=== PATIENT | female | born 1965 ===

== ENCOUNTER 2025-06-06 07:23 | Outpatient (AMB) | payer BC, SELFPAY ==
[2025-06-06 07:26] VITALS: BMI 38.3
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
--- OUTSIDE RECORDS SUMMARY | 2025-06-06 07:26 | XMS_ITS | Data Portability ---
Author Organization [place] - [place] V[facility]phyicut, [id number] [facility] Address [address] [place] [address] Care Team Providers Care Pediatric Clinical Nurse Specialist Name Role Phone SHUKRI WEATHERS Mental Health Program Manager JUSTIN ARELLANO Primary Care Provider Assessment No assessment recorded. Plan of Treatment Reminders Order Date Submit Date Provider Last Modified By Organization Details Last Modified Time Details Appointments Wellness Visit 2024 02:00P M Justin Arellano MD Not available Not available Not available Lab urinalysi s, dipstick [address]_ctcma_im_[address] [place] [address], [address], [place], [address], 07/06/2023 15:40:59 Referral gastroent erologist referral 2024 025 [facility], [facility], [address] [place] [address], [address], 07/27/2024 14:24:36 gastroent erologist referral 2023 024 [facility], [facility], [address] [place] [address], [address], 07/07/2023 09:00:50 Procedures None recorded. Surgeries None recorded. Imaging MAMMO, screening , tomosynth esis, bilateral , w/ CAD 2024 025 [facility] ([facility]), [address], [place], [address], 09/04/2024 20:09:02 MAMMO, screening , tomosynth esis, bilateral , w/ CAD 2022 024 [facility] ([facility]), [address], [place], [address], 07/22/2023 14:09:33 Medication Orders escitalop todd 10 mg tablet 2023 024 [facility] #[id number], [address] [place], [address], 10/29/2023 08:52:50 Ozempic 2 mg/dose (8 mg/3 mL) subcutane ous pen injector 2023 024 [facility] #[id number], [address] [place], [address], 10/29/2023 08:53:54 metformin 500 mg tablet 2023 024 [id number], [address] [place], [address], 07/06/2023 15:41:00 Ozempic 2 mg/dose (8 mg/3 mL) subcutane ous pen injector 2022 023 [facility] #[id number], [address] [place], [address], 10/29/2023 08:53:54 metformin 500 mg tablet 2022 023 [id number], [address] [place], [address], 04/20/2023 09:47:00 Zithromax Z-Ryan 250 mg tablet 2022 023 [facility] #[id number], [address] [place], [address], 10/29/2023 08:52:33 albuterol sulfate HFA 90 mcg/actua tion aerosol inhaler [address] [id number], [address] [place], [address], 04/20/2023 09:21:31 prednison e 10 mg tablet [address] [id number], [address] [place], [address], 04/20/2023 09:21:46 codeine 10 mg-guaife nesin 100 mg/5 mL oral liquid [address] [id number], [address] [place], [address], 04/20/2023 09:21:58 Patient TargetsNo targets recorded. Patient Instructions Encounter Date Encounter Id Patient Instructions Last Modified By Organization Details Last Modified Time 10/29/2023 [id number] * Try to keep th e swollen area higher than the level of your heart * Take breaks from standing or sitting in one position * Wear support stockings. Put them on in the morning, before swelling gets worse * Limit the amount of salt (sodium) in your diet [id number] Not available 10/31/2023 12:21:17 Reason for Referral User Interface Developer Referral for Screening for malignant neoplasm of colon Referring Physician: Justin Arellano, Internal Medicine, Encounter Date: 07/06/2023 User Interface Developer Referral for Screening for malignant neoplasm of colon Referring Physician: Justin Arellano, Internal Medicine, Encounter Date: 07/26/2024 Results Created Date Observation Date Name Description Value Unit Range Abnormal Flag Note LastModifiedBy Organization Detail LastModifiedTime 04/30/20 23 05/01/2023 LIPID PANEL WITH REFLE X TO DIREC T LDL cholesterol, total 209 mg/dL <200 high Not Available [facility] [address], [place], [address], 05/01/2023 05:03:39 04/30/20 23 05/01/2023 LIPID PANEL WITH REFLE X TO DIREC T LDL HDL cholesterol 61 mg/dL > or = 50 normal Not Available [facility] [place] [facility] [address], [place], [address], 05/01/2023 05:03:39 04/30/20 23 05/01/2023 LIPID PANEL WITH REFLE X TO DIREC T LDL triglyceride s 127 mg/dL <150 normal Not Available [facility] [place] [facility] [address], [place], [address], 05/01/2023 05:03:39 04/30/20 23 05/01/2023 LIPID PANEL WITH REFLE X TO DIREC T LDL LDL-choleste rol 124 mg/dL _(ruben c) high Refer ence range : <100 Nikhil able range <100 mg/dL for prima ry preve ntion ; <70 mg/dL for patie nts with CHD or diabe tic patie nts with > or = 2 CHD risk facto rs. LDL-C is now calcu lated using the Keyana rogers-Hop kins calcu barrera n, which is a valid ated novel gonzalez garzon christopher r accur acy than the Fried noemy equat ion in the estim ation of LDL-C . Keyana WATKINS et al. PATRICK. 2013; 310(1 9): 2061- 2068 (http ://ed ucati on.Qu Gertrudis hook BO.LTs. com/f aq/FA Q164) Not Available [facility] [place] [facility] [address], [place], [address], 05/01/2023 05:03:39 04/30/20 23 05/01/2023 LIPID PANEL WITH REFLE X TO DIREC T LDL chol/HDLC ratio 3.4 (calc ) <5.0 normal Not Available [facility] [place] [facility] [address], [place], [address], 05/01/2023 05:03:39 04/30/20 23 05/01/2023 LIPID PANEL WITH REFLE X TO DIREC T LDL non HDL cholesterol 148 mg/dL _(ruben c) <130 high For patie nts with diabe anahi plus 1 major ASCVD risk facto r, treat ing to a non-H DL-C goal of <100 mg/dL (LDL- C of <70 mg/dL ) is consi dered a thera peuti c optio n. Not Available [facility] [place] [facility] [address], [place], [address], 05/01/2023 05:03:39 04/30/2005/01/2023 COMPR EHENS SWATHI METAB OLIC PANEL glucose 90 mg/dL 65-99 normal Fasti ng refer ence inter payton Not Available [facility] [place] [facility] [address], [place], [address], 05/01/2023 05:03:40 04/30/20 23 05/01/2023 COMPR EHENS SWATHI METAB OLIC PANEL urea nitrogen (BUN) 13 mg/dL 7-25 normal Not Available [facility] [place] [facility] [address], [place], [address], 05/01/2023 05:03:40 04/30/20 23 05/01/2023 COMPR EHENS SWATHI METAB OLIC PANEL creatinine 0.66 mg/dL 0.50-1 .03 normal Not Available [facility] [place] [facility] [address], [place], [address], 05/01/2023 05:03:40 04/30/20 23 05/01/2023 COMPR EHENS SWATHI METAB OLIC PANEL eGFR 104 mL/mi n/1.7 3m2 > or = 60 normal Not Available [facility] [address], [place], [address], 05/01/2023 05:03:40 04/30/20 23 05/01/2023 COMPR EHENS SWATHI METAB OLIC PANEL BUN/creatini ne ratio SEE NOTE: (calc ) 6-22 Not Repor carolann: BUN and Creat inine are withi n refer ence range . Not Available [facility] [address], [place], [address], 05/01/2023 05:03:40 04/30/20 23 05/01/2023 COMPR EHENS SWATHI METAB OLIC PANEL sodium 139 mmol/ L 135-14 6 normal Not Available [facility] [address], [place], [address], 05/01/2023 05:03:40 04/30/20 23 05/01/2023 COMPR EHENS SWATHI METAB OLIC PANEL potassium 4.2 mmol/ L 3.5-5. 3 normal Not Available [facility] [address], [place], [address], 05/01/2023 05:03:40 04/30/20 23 05/01/2023 COMPR EHENS SWATHI METAB OLIC PANEL chloride 106 mmol/ L 98-110 normal Not Available [facility] [address], [place], [address], 05/01/2023 05:03:40 04/30/20 23 05/01/2023 COMPR EHENS SWATHI METAB OLIC PANEL carbon dioxide 25 mmol/ L 20-32 normal Not Available [facility] [address], [place], [address], 05/01/2023 05:03:40 04/30/20 23 05/01/2023 COMPR EHENS SWATHI METAB OLIC PANEL calcium 9.3 mg/dL 8.6-10 .4 normal Not Available [facility] [address], [place], [address], 05/01/2023 05:03:40 04/30/20 23 05/01/2023 COMPR EHENS SWATHI METAB OLIC PANEL protein, total 6.9 g/dL 6.1-8. 1 normal Not Available [facility] [address], [place], [address], 05/01/2023 05:03:40 04/30/20 23 05/01/2023 COMPR EHENS SWATHI METAB OLIC PANEL albumin 4.5 g/dL 3.6-5. 1 normal Not Available [facility] [address], [place], [address], 05/01/2023 05:03:40 04/30/20 23 05/01/2023 COMPR EHENS SWATHI METAB OLIC PANEL globulin 2.4 g/dL_ (calc ) 1.9-3. 7 normal Not Available [facility] [address], [place], [address], 05/01/2023 05:03:40 04/30/20 23 05/01/2023 COMPR EHENS SWATHI METAB OLIC PANEL albumin/glob ulin ratio 1.9 (calc ) 1.0-2. 5 normal Not Available [facility] [address], [place], [address], 05/01/2023 05:03:40 04/30/20 23 05/01/2023 COMPR EHENS SWATHI METAB OLIC PANEL bilirubin, total 0.7 mg/dL 0.2-1. 2 normal Not Available [facility] [address], [place], [address], 05/01/2023 05:03:40 04/30/20 23 05/01/2023 COMPR EHENS SWATHI METAB OLIC PANEL alkaline phosphatase 73 U/L 37-153 normal Not Available [facility] [address], [place], [address], 05/01/2023 05:03:40 04/30/20 23 05/01/2023 COMPR EHENS SWATHI METAB OLIC PANEL AST 18 U/L 10-35 normal Not Available [facility] [place] [facility] [address], [place], [address], 05/01/2023 05:03:40 04/30/20 23 05/01/2023 COMPR EHENS SWATHI METAB OLIC PANEL ALT 27 U/L 6-29 normal Not Available [facility] [place] [facility] [address], [place], [address], 05/01/2023 05:03:40 04/30/20 23 05/01/2023 CBC (INCL UDES DIFF/ PLT) white blood cell count 8.0 thous and/u L 3.8-10 .[address] [facility] [place] [facility] [address], [place], [address], 05/01/2023 05:03:41 04/30/20 23 05/01/2023 CBC (INCL UDES DIFF/ PLT) red blood cell count 4.94 irma on/uL 3.80-5 .10 normal Not Available [facility] [address], [place], [address], 05/01/2023 05:03:41 04/30/20 23 05/01/2023 CBC (INCL UDES DIFF/ PLT) hemoglobin 14.0 g/dL 11.7-1 5.5 normal Not Available [facility] [address], [place], [address], 05/01/2023 05:03:41 04/30/20 23 05/01/2023 CBC (INCL UDES DIFF/ PLT) hematocrit 41.7 % 35.0-4 5.0 normal Not Available [facility] [address], [place], [address], 05/01/2023 05:03:41 04/30/20 23 05/01/2023 CBC (INCL UDES DIFF/ PLT) MCV 84.4 fL 80.0-1 00.0 normal Not Available [facility] [place] [facility] [address], [place], [address], 05/01/2023 05:03:41 04/30/20 23 05/01/2023 CBC (INCL UDES DIFF/ PLT) MCH 28.3 pg 27.0-3 3.0 normal Not Available [facility] [address], [place], [address], 05/01/2023 05:03:41 04/30/20 23 05/01/2023 CBC (INCL UDES DIFF/ PLT) MCHC 33.6 g/dL 32.0-3 6.0 normal Not Available [facility] [place] [facility] [address], [place], [address], 05/01/2023 05:03:41 04/30/20 23 05/01/2023 CBC (INCL UDES DIFF/ PLT) RDW 13.1 % 11.0-1 5.0 normal Not Available [facility] [address], [place], [address], 05/01/2023 05:03:41 04/30/20 23 05/01/2023 CBC (INCL UDES DIFF/ PLT) platelet count 347 thous and/u L 140-40 0 normal Not Available [facility] [place] [facility] [address], [place], [address], 05/01/2023 05:03:41 04/30/20 23 05/01/2023 CBC (INCL UDES DIFF/ PLT) MPV 10.6 fL 7.5-12 .5 normal Not Available [facility] [place] [facility] [address], [place], [address], 05/01/2023 05:03:41 04/30/20 23 05/01/2023 CBC (INCL UDES DIFF/ PLT) absolute neutrophils 4960 cells /uL 1500-7 800 normal Not Available [facility] [place] [facility] [address], [place], [address], 05/01/2023 05:03:41 04/30/20 23 05/01/2023 CBC (INCL UDES DIFF/ PLT) absolute lymphocytes 2120 cells /uL 850-39 00 normal Not Available [facility] [place] [facility] [address], [place], [address], 05/01/2023 05:03:41 04/30/20 23 05/01/2023 CBC (INCL UDES DIFF/ PLT) absolute monocytes 600 cells /uL 200-95 0 normal Not Available [facility] [place] [facility] [address], [place], [address], 05/01/2023 05:03:41 04/30/20 23 05/01/2023 CBC (INCL UDES DIFF/ PLT) absolute eosinophils 232 cells /uL 15-500 normal Not Available [facility] [place] [facility] [address], [place], [address], 05/01/2023 05:03:41 04/30/20 23 05/01/2023 CBC (INCL UDES DIFF/ PLT) absolute basophils 88 cells /uL 0-200 normal Not Available [facility] [place] [facility] [address], [place], [address], 05/01/2023 05:03:41 04/30/20 23 05/01/2023 CBC (INCL UDES DIFF/ PLT) neutrophils 62 % normal Not Available [facility] [place] [facility] [address], [place], [address], 05/01/2023 05:03:41 04/30/2005/01/2023 CBC (INCL UDES DIFF/ PLT) lymphocytes 26.5 % normal Not Available [facility] [place] [facility] [address], [address], 05/01/2023 05:03:41 04/30/20 23 05/01/2023 CBC (INCL UDES DIFF/ PLT) monocytes 7.5 % normal Not Available [facility] [place] [facility] [address], [address], 05/01/2023 05:03:41 04/30/2005/01/2023 CBC (INCL UDES DIFF/ PLT) eosinophils 2.9 % normal Not Available [facility] [place] [facility] [address], [place], [address], 05/01/2023 05:03:41 04/30/20 23 05/01/2023 CBC (INCL UDES DIFF/ PLT) basophils 1.1 % normal Not Available [facility] [place] [facility] [address], [place], [address], 05/01/2023 05:03:41 04/30/20 23 05/01/2023 TSH W/REF TACOS TO FT4 TSH w/reflex to FT4 2.19 mIU/L normal Refer ence Range > or = 20 Years 0.40- 4.50 Pregn thien Range s First trime ster 0.26- 2.66 Secon d trime ster 0.55- 2.73 Third trime ster 0.43- 2.91 Not Available [facility] [place] [facility] [address], [address], 05/01/2023 05:03:42 04/30/2005/01/2023 HEMOG LOBIN A1C hemoglobin A1C 5.2 %_of_ total _HGB <5.7 normal For the purpo se of scree oziel for the prese nce of diabe anahi: <5.7% Consi stent with the absen ce of diabe anahi 5.7-6 .4% Consi stent with incre ased risk for diabe anahi (pred iabet es) > or =6.5% Consi stent with diabe anahi This assay resul t is consi stent with a decre ased risk of diabe anahi. Curre ntly, no conse nsus exist s telma garzon use of hemog lobin A1c for diagn osis of diabe anahi in child chilango. Accor ding to Ameri can Diabe anahi Assoc iatio n (ADA) guide lines , hemog lobin A1c <7.0% repre sents optim al contr ol in non-p regna nt diabe tic patie nts. Diffe rent metri cs may apply to speci fic patie nt popul ation s. Stand ards of Medic al Care in Diabe anahi(A DA). Not Available [facility] [place] [facility] [address] [place] [address] B, [place], [address], 05/01/2023 05:03:43 07/06/19 24 07/06/2023 urina lysis , dipst ick Leukocytes 2+ Not Available Ct_ctcm a_im_0 [address] [place] [address], [address], 07/06/2023 15:16:11 07/06/19 24 07/06/2023 urina lysis , dipst ick Nitrite negati ve Not Available Ct_ctcma_im _0 [address], [address], 07/06/2023 15:16:11 07/06/19 24 07/06/2023 urina lysis , dipst ick Urobilinogen Normal Not Available Ct_ct cma_im_0 [address], [place], [address], 07/06/2023 15:16:11 07/06/19 24 07/06/2023 urina lysis , dipst ick Protein Negati ve Not Available Ct_ctcma_im _[address], [place], [address], 07/06/2023 15:16:11 07/06/19 24 07/06/2023 urina lysis , dipst ick pH 6.5 Not Available Ct_ctcma_i m_0 [address], [place], [address], 07/06/2023 15:16:11 07/06/19 24 07/06/2023 urina lysis , dipst ick Blood Negati ve Not Available Ct_ctcma_im _[address], [place], [address], 07/06/2023 15:16:11 07/06/19 24 07/06/2023 urina lysis , dipst ick Specific [place] 1.005 Not Available [address]_ctc ma_im_[address], [place], [address], 07/06/2023 15:16:11 07/06/19 24 07/06/2023 urina lysis , dipst ick Ketone Negati ve Not Available Ct_ctcma_im _[address], [place], [address], 07/06/2023 15:16:11 07/06/19 24 07/06/2023 urina lysis , dipst ick Bilirubin Negati ve Not Available Ct_ctcma_im _[address], [place], [address], 07/06/2023 15:16:11 07/06/19 24 07/06/2023 urina lysis , dipst ick Glucose Negati ve Not Available Ct_ctcma_im _[address], [place], [address], 07/06/2023 15:16:11 07/06/19 24 07/06/2023 urina lysis , dipst ick Appearance Clear Not Available Ct_ctcm a_im_0 [address], [place], [address], 07/06/2023 15:16:11 07/06/19 24 07/06/2023 urina lysis , dipst ick Color Yellow Not Available Ct_ctcma_i m_0 [address], [place], [address], 07/06/2023 15:16:11 02/22/20 24 02/23/2024 URIC ACID uric acid 4.2 mg/dL 2.5-7. 0 normal Thera peuti c targe t for gout patie nts: <6.0 mg/dL Not Available [facility] [address], [place], [address], 02/23/2024 00:55:22 02/22/20 24 02/23/2024 BASIC METAB OLIC PANEL glucose 121 mg/dL 65-99 high Fasti ng refer ence inter payton For someo ne witho ut known diabe anahi, a gluco se value betwe en 100 and 125 mg/dL is consi stent with predi abete s and shoul d be confi rmed with a follo w-up test. Not Available [facility] [address], [place], [address], 02/23/2024 00:55:23 02/22/20 24 02/23/2024 BASIC METAB OLIC PANEL urea nitrogen (BUN) 11 mg/dL 7-25 normal Not Available [facility] [address], [place], [address], 02/23/2024 00:55:23 02/22/20 24 02/23/2024 BASIC METAB OLIC PANEL creatinine 0.72 mg/dL 0.50-1 .03 normal Not Available [facility] [address] [place], [place], [address], 02/23/2024 00:55:23 02/22/20 24 02/23/2024 BASIC METAB OLIC PANEL eGFR 98 mL/mi n/1.7 3m2 > or = 60 normal Not Available [facility] [address] [place], [place], [address], 02/23/2024 00:55:23 02/22/20 24 02/23/2024 BASIC METAB OLIC PANEL BUN/creatini ne ratio SEE NOTE: (calc ) 6-22 Not Repor carolann: BUN and Creat inine are withi n refer ence range . Not Available [facility] [address], [place], [address], 02/23/2024 00:55:23 02/22/20 24 02/23/2024 BASIC METAB OLIC PANEL sodium 139 mmol/ L 135-14 6 normal Not Available [facility] [address], [place], [address], 02/23/2024 00:55:23 02/22/20 24 02/23/2024 BASIC METAB OLIC PANEL potassium 3.9 mmol/ L 3.5-5. 3 normal Not Available [facility] [address] [place], [place], [address], 02/23/2024 00:55:23 02/22/20 24 02/23/2024 BASIC METAB OLIC PANEL chloride 107 mmol/ L 98-110 normal Not Available [facility] [address] [place], [place], [address], 02/23/2024 00:55:23 02/22/20 24 02/23/2024 BASIC METAB OLIC PANEL carbon dioxide 24 mmol/ L 20-32 normal Not Available [facility] [address], [place], [address], 02/23/2024 00:55:23 02/22/20 24 02/23/2024 BASIC METAB OLIC PANEL calcium 8.9 mg/dL 8.6-10 .4 normal Not Available [facility] [address] [place], [place], [address], 02/23/2024 00:55:23 02/22/20 24 02/23/2024 SED RATE BY MODIF IED WESTE RGREN sed rate by modified westergren 2 mm/h < or = 30 normal Not Available [facility] [address] [place], [place], [address], 02/23/2024 00:55:23 02/22/20 24 02/23/2024 CBC (INCL UDES DIFF/ PLT) white blood cell count 8.7 thous and/u L 3.8-10 .8 normal Not Available [facility] [address], [place], [address], 02/23/2024 00:55:23 02/22/20 24 02/23/2024 CBC (INCL UDES DIFF/ PLT) red blood cell count 4.85 irma on/uL 3.80-5 .10 normal Not Available [facility] [address] [place], [place], [address], 02/23/2024 00:55:23 02/22/20 24 02/23/2024 CBC (INCL UDES DIFF/ PLT) hemoglobin 13.6 g/dL 11.7-1 5.5 normal Not Available [facility] [address], [place], [address], 02/23/2024 00:55:23 02/22/20 24 02/23/2024 CBC (INCL UDES DIFF/ PLT) hematocrit 42.7 % 35.0-4 5.0 normal Not Available [facility] [place] [facility] [address], [place], [address], 02/23/2024 00:55:23 02/22/20 24 02/23/2024 CBC (INCL UDES DIFF/ PLT) MCV 88.0 fL 80.0-1 00.0 normal Not Available [facility] [place] [facility] [address], [place], [address], 02/23/2024 00:55:23 02/22/20 24 02/23/2024 CBC (INCL UDES DIFF/ PLT) MCH 28.0 pg 27.0-3 3.0 normal Not Available [facility] [place] [facility] [address], [place], [address], 02/23/2024 00:55:23 02/22/20 24 02/23/2024 CBC (INCL UDES DIFF/ PLT) MCHC 31.9 g/dL 32.0-3 6.0 low Not Available [facility] [place] [facility] [address], [place], [address], 02/23/2024 00:55:23 02/22/20 24 02/23/2024 CBC (INCL UDES DIFF/ PLT) RDW 13.4 % 11.0-1 5.0 normal Not Available [facility] [place] [facility] [address], [place], [address], 02/23/2024 00:55:23 02/22/20 24 02/23/2024 CBC (INCL UDES DIFF/ PLT) platelet count 323 thous and/u L 140-40 0 normal Not Available [facility] [address], [place], [address], 02/23/2024 00:55:23 02/22/20 24 02/23/2024 CBC (INCL UDES DIFF/ PLT) MPV 11.6 fL 7.5-12 .5 normal Not Available [facility] [place] [facility] [address], [place], [address], 02/23/2024 00:55:23 02/22/20 24 02/23/2024 CBC (INCL UDES DIFF/ PLT) absolute neutrophils 5751 cells /uL 1500-7 800 normal Not Available [facility] [place] [facility] [address], [place], [address], 02/23/2024 00:55:23 02/22/20 24 02/23/2024 CBC (INCL UDES DIFF/ PLT) absolute lymphocytes 1975 cells /uL 850-39 00 normal Not Available [facility] [place] [facility] [address], [place], [address], 02/23/2024 00:55:23 02/22/20 24 02/23/2024 CBC (INCL UDES DIFF/ PLT) absolute monocytes 653 cells /uL 200-95 0 normal Not Available [facility] [place] [facility] [address], [place], [address], 02/23/2024 00:55:23 02/22/20 24 02/23/2024 CBC (INCL UDES DIFF/ PLT) absolute eosinophils 270 cells /uL 15-500 normal Not Available [facility] [place] [facility] [address], [place], [address], 02/23/2024 00:55:23 02/22/20 24 02/23/2024 CBC (INCL UDES DIFF/ PLT) absolute basophils 52 cells /uL 0-200 normal Not Available [facility] [place] [facility] [address], [place], [address], 02/23/2024 00:55:23 02/22/20 24 02/23/2024 CBC (INCL UDES DIFF/ PLT) neutrophils 66.1 % normal Not Available [facility] [place] [facility] [address], [place], [address], 02/23/2024 00:55:23 02/22/20 24 02/23/2024 CBC (INCL UDES DIFF/ PLT) lymphocytes 22.7 % normal Not Available [facility] [place] Lab [address], [place], [address], 02/23/2024 00:55:23 02/22/20 24 02/23/2024 CBC (INCL UDES DIFF/ PLT) monocytes 7.5 % normal Not Available [facility] [place] [facility] [address], [place], [address], 02/23/2024 00:55:23 02/22/20 24 02/23/2024 CBC (INCL UDES DIFF/ PLT) eosinophils 3.1 % normal Not Available [facility] [place] [facility] [address], [place], [address], 02/23/2024 00:55:23 02/22/20 24 02/23/2024 CBC (INCL UDES DIFF/ PLT) basophils 0.6 % normal Not Available [facility] [place] [facility] [address] [place], [place], [address], 02/23/2024 00:55:23 02/22/20 24 02/23/2024 C-ROSS CTIVE PROTE IN C-reactive protein 8.4 mg/L <8.0 high Not Available [facility] [place] [facility] [address], [place], [address], 02/23/2024 00:55:24 02/22/20 24 02/23/2024 TSH+F REE T4 TSH 2.62 mIU/L 0.40-4 .50 normal Not Available [facility] [place] [facility] [address], [place], [address], 02/23/2024 00:55:24 02/22/20 24 02/23/2024 TSH+F REE T4 T4, free 1.1 NG/dL 0.8-1. 8 normal Not Available [facility] [address], [place], [address], 02/23/2024 00:55:24 06/01/20 25 06/03/2025 LIPID PANEL WITH REFLE X TO DIREC T LDL cholesterol, total 219 mg/dL <200 high Not Available [facility] [place] [facility] [address], [place], [address], 06/03/2025 14:00:22 06/01/20 25 06/03/2025 LIPID PANEL WITH REFLE X TO DIREC T LDL HDL cholesterol 65 mg/dL > or = 50 normal Not Available [facility] [address], [place], [address], 06/03/2025 14:00:22 06/01/20 25 06/03/2025 LIPID PANEL WITH REFLE X TO DIREC T LDL triglyceride s 100 mg/dL <150 normal Not Available [facility] [address], [place], [address], 06/03/2025 14:00:22 06/01/20 25 06/03/2025 LIPID PANEL WITH REFLE X TO DIREC T LDL LDL-choleste rol 133 mg/dL _(ruben c) high Refer ence range : <100 Nikhil able range <100 mg/dL for prima ry preve ntion ; <70 mg/dL for patie nts with CHD or diabe tic patie nts with > or = 2 CHD risk facto rs. LDL-C is now calcu lated using the [place] n-Hop kins pawan rogers, which is a valid ated novel gonzalez white r accur acy than the Fried noemy equat ion in the estim ation of LDL-C . [place] WATKINS et al. PATRICK. 2013; 310(1 9): 2061- 2068 (http ://ed ucati on.Qu estDi agnos tics. com/f aq/FA Q164) Not Available [facility] [address] [place], [place], [address], 06/03/2025 14:00:22 06/01/20 25 06/03/2025 LIPID PANEL WITH REFLE X TO DIREC T LDL chol/HDLC ratio 3.4 (calc ) <5.0 normal Not Available [facility] [address] [place], [place], [address], 06/03/2025 14:00:22 06/01/20 25 06/03/2025 LIPID PANEL WITH REFLE X TO DIREC T LDL non HDL cholesterol 154 mg/dL _(ruben c) <130 high For patie nts with diabe anahi plus 1 major ASCVD risk facto r, treat ing to a non-H DL-C goal of <100 mg/dL (LDL- C of <70 mg/dL ) is consi dered a thera peuti c optio n. Not Available [facility] [address], [place], [address], 06/03/2025 14:00:22 06/01/20 25 06/03/2025 COMPR EHENS SWATHI METAB OLIC PANEL glucose 87 mg/dL 65-99 normal Fasti ng refer ence inter payton Not Available [facility] [address], [place], [address], 06/03/2025 14:00:22 06/01/20 25 06/03/2025 COMPR EHENS SWATHI METAB OLIC PANEL urea nitrogen (BUN) 17 mg/dL 7-25 normal Not Available [facility] [address], [place], [address], 06/03/2025 14:00:22 06/01/20 25 06/03/2025 COMPR EHENS SWATHI METAB OLIC PANEL creatinine 0.72 mg/dL 0.50-1 .03 normal Not Available [facility] [place] [facility] [address], [place], [address], 06/03/2025 14:00:22 06/01/20 25 06/03/2025 COMPR EHENS SWATHI METAB OLIC PANEL eGFR 97 mL/mi n/1.7 3m2 > or = 60 normal Not Available [facility] [place] [facility] [address], [place], [address], 06/03/2025 14:00:22 06/01/20 25 06/03/2025 COMPR EHENS SWATHI METAB OLIC PANEL BUN/creatini ne ratio SEE NOTE: (calc ) 6-22 Not Repor carolann: BUN and Creat inine are withi n refer ence range . Not Available [facility] [place] [facility] [address], [place], [address], 06/03/2025 14:00:22 06/01/20 25 06/03/2025 COMPR EHENS SWATHI METAB OLIC PANEL sodium 139 mmol/ L 135-14 6 normal Not Available [facility] [place] [facility] [address], [place], [address], 06/03/2025 14:00:22 06/01/20 25 06/03/2025 COMPR EHENS SWATHI METAB OLIC PANEL potassium 4.4 mmol/ L 3.5-5. 3 normal Not Available [facility] [place] [facility] [address], [place], [address], 06/03/2025 14:00:22 06/01/20 25 06/03/2025 COMPR EHENS SWATHI METAB OLIC PANEL chloride 106 mmol/ L 98-110 normal Not Available [facility] [place] [facility] [address], [place], [address], 06/03/2025 14:00:22 06/01/20 25 06/03/2025 COMPR EHENS SWATHI METAB OLIC PANEL carbon dioxide 25 mmol/ L 20-[address] [facility] [place] [facility] [address], [place], [address], 06/03/2025 14:00:22 06/01/20 25 06/03/2025 COMPR EHENS SWATHI METAB OLIC PANEL calcium 9.5 mg/dL 8.6-10 .[address] [facility] [place] [facility] [address], [place], [address], 06/03/2025 14:00:22 06/01/20 25 06/03/2025 COMPR EHENS SWATHI METAB OLIC PANEL protein, total 7.0 g/dL 6.1-8. 1 normal Not Available [facility] [address], [place], [address], 06/03/2025 14:00:22 06/01/20 25 06/03/2025 COMPR EHENS SWATHI METAB OLIC PANEL albumin 4.5 g/dL 3.6-5. 1 normal Not Available [facility] [address], [place], [address], 06/03/2025 14:00:22 06/01/20 25 06/03/2025 COMPR EHENS SWATHI METAB OLIC PANEL globulin 2.5 g/dL_ (calc ) 1.9-3. 7 normal Not Available [facility] [address], [place], [address], 06/03/2025 14:00:22 06/01/20 25 06/03/2025 COMPR EHENS SWATHI METAB OLIC PANEL albumin/glob ulin ratio 1.8 (calc ) 1.0-2. 5 normal Not Available [facility] [address], [place], [address], 06/03/2025 14:00:22 06/01/20 25 06/03/2025 COMPR EHENS SWATHI METAB OLIC PANEL bilirubin, total 0.7 mg/dL 0.2-1. 2 normal Not Available [facility] [address], [place], [address], 06/03/2025 14:00:22 06/01/20 25 06/03/2025 COMPR EHENS SWATHI METAB OLIC PANEL alkaline phosphatase 53 U/L 37-153 normal Not Available [facility] [address], [place], [address], 06/03/2025 14:00:22 06/01/20 25 06/03/2025 COMPR EHENS SWATHI METAB OLIC PANEL AST 15 U/L 10-35 normal Not Available [facility] [address], [place], [address], 06/03/2025 14:00:22 06/01/20 25 06/03/2025 COMPR EHENS SWATHI METAB OLIC PANEL ALT 24 U/L 6-29 normal Not Available [facility] [address], [place], [address], 06/03/2025 14:00:22 06/01/20 25 06/03/2025 URINA LYSIS , COMPL ETE W/REF TACOS TO CULTU RE color YELLOW yellow normal Not Available [facility] [address], [place], [address], 06/03/2025 14:00:23 06/01/20 25 06/03/2025 URINA LYSIS , COMPL ETE W/REF TACOS TO CULTU RE appearance CLEAR clear normal Not Available [facility] [address], [place], [address], 06/03/2025 14:00:23 06/01/20 25 06/03/2025 URINA LYSIS , COMPL ETE W/REF TACOS TO CULTU RE specific gravity 1.018 1.001- 1.035 normal Not Available [facility] [place] [facility] [address], [place], [address], 06/03/2025 14:00:23 06/01/20 25 06/03/2025 URINA LYSIS , COMPL ETE W/REF TACOS TO CULTU RE pH < OR = 5.0 5.0-8. 0 abnormal Not Available [facility] [address], [place], [address], 06/03/2025 14:00:23 06/01/20 25 06/03/2025 URINA LYSIS , COMPL ETE W/REF TACOS TO CULTU RE glucose NEGATI VE negati ve normal Not Available [facility] [place] [facility] [address], [place], [address], 06/03/2025 14:00:23 06/01/20 25 06/03/2025 URINA LYSIS , COMPL ETE W/REF TACOS TO CULTU RE bilirubin NEGATI VE negati ve normal Not Available [facility] [address], [place], [address], 06/03/2025 14:00:23 06/01/20 25 06/03/2025 URINA LYSIS , COMPL ETE W/REF TACOS TO CULTU RE ketones NEGATI VE negati ve normal Not Available [facility] [place] [facility] [address], [place], [address], 06/03/2025 14:00:23 06/01/20 25 06/03/2025 URINA LYSIS , COMPL ETE W/REF TACOS TO CULTU RE occult blood NEGATI VE negati ve normal Not Available [facility] [place] [facility] [address], [place], [address], 06/03/2025 14:00:23 06/01/20 25 06/03/2025 URINA LYSIS , COMPL ETE W/REF TACOS TO CULTU RE protein NEGATI VE negati ve normal Not Available [facility] [place] [facility] [address], [place], [address], 06/03/2025 14:00:23 06/01/20 25 06/03/2025 URINA LYSIS , COMPL ETE W/REF TACOS TO CULTU RE nitrite NEGATI VE negati ve normal Not Available [facility] [place] [facility] [address], [place], [address], 06/03/2025 14:00:23 06/01/20 25 06/03/2025 URINA LYSIS , COMPL ETE W/REF TACOS TO CULTU RE leukocyte esterase 2+ negati ve abnormal Not Available [facility] [address], [place], [address], 06/03/2025 14:00:23 06/01/20 25 06/03/2025 URINA LYSIS , COMPL ETE W/REF TACOS TO CULTU RE WBC > OR = 60 /hpf < or = 5 abnormal Not Available [facility] [address], [place], [address], 06/03/2025 14:00:23 06/01/20 25 06/03/2025 URINA LYSIS , COMPL ETE W/REF TACOS TO CULTU RE RBC NONE SEEN /hpf < or = 2 normal Not Available [facility] [place] [facility] [address], [place], [address], 06/03/2025 14:00:23 06/01/20 25 06/03/2025 URINA LYSIS , COMPL ETE W/REF TACOS TO CULTU RE squamous epithelial cells 0-5 /hpf < or = 5 Not Available [facility] [address], [place], [address], 06/03/2025 14:00:23 06/01/20 25 06/03/2025 URINA LYSIS , COMPL ETE W/REF TACOS TO CULTU RE bacteria FEW /hpf none seen abnormal Not Available [facility] [place] [facility] [address] [place], [place], [address], 06/03/2025 14:00:23 06/01/20 25 06/03/2025 URINA LYSIS , COMPL ETE W/REF TACOS TO CULTU RE hyaline cast NONE SEEN /lpf none seen normal Not Available [facility] [place] [facility] [address], [place], [address], 06/03/2025 14:00:23 06/01/20 25 06/03/2025 URINA LYSIS , COMPL ETE W/REF TACOS TO CULTU RE note This urine was dagmar zed for the prese nce of WBC, RBC, bacte rayna, casts , and other forme d eleme nts. Only those eleme nts seen were repor carolann. Not Available [facility] [place] [facility] [address], [place], [address], 06/03/2025 14:00:23 06/01/20 25 06/03/2025 REFLE XIVE URINE CULTU RE reflexive urine culture CULTU RE INDIC ATED - RESUL TS TO FOLLO W Not Available [facility] [address], [place], [address], 06/03/2025 14:00:23 06/01/20 25 06/03/2025 CBC (INCL UDES DIFF/ PLT) (REFL ) white blood cell count 7.6 thous and/u L 3.8-10 .8 normal Not Available [facility] [place] [facility] [address], [place], [address], 06/03/2025 14:00:24 06/01/20 25 06/03/2025 CBC (INCL UDES DIFF/ PLT) (REFL ) red blood cell count 5.23 irma on/uL 3.80-5 .10 high Not Available [facility] [place] [facility] [address], [place], [address], 06/03/2025 14:00:24 06/01/20 25 06/03/2025 CBC (INCL UDES DIFF/ PLT) (REFL ) hemoglobin 14.7 g/dL 11.7-1 5.5 normal Not Available [facility] [address], [place], [address], 06/03/2025 14:00:24 06/01/20 25 06/03/2025 CBC (INCL UDES DIFF/ PLT) (REFL ) hematocrit 45.5 % 35.9-4 6.0 normal Not Available [facility] [address], [place], [address], 06/03/2025 14:00:24 06/01/20 25 06/03/2025 CBC (INCL UDES DIFF/ PLT) (REFL ) MCV 87.0 fL 81.4-1 01.7 normal Not Available [facility] [address], [place], [address], 06/03/2025 14:00:24 06/01/20 25 06/03/2025 CBC (INCL UDES DIFF/ PLT) (REFL ) MCH 28.1 pg 27.0-3 3.0 normal Not Available [facility] [address], [place], [address], 06/03/2025 14:00:24 06/01/20 25 06/03/2025 CBC (INCL UDES DIFF/ PLT) (REFL ) MCHC 32.3 g/dL 31.6-3 5.4 normal For adult s, a sligh t decre ase in the calcu lated MCHC value (in the range of 30 to 32 g/dL) is most likel y not clini shayy signi fican t; howev er, it shoul d be inter prete d with cauti on in [facility] n with other red cell peggy eters and the patie nt's clini ruben condi tion. Not Available [facility] [place] [facility] [address], [place], [address], 06/03/2025 14:00:24 06/01/20 25 06/03/2025 CBC (INCL UDES DIFF/ PLT) (REFL ) RDW 13.2 % 11.0-1 5.0 normal Not Available [facility] [place] [facility] [address], [place], [address], 06/03/2025 14:00:24 06/01/20 25 06/03/2025 CBC (INCL UDES DIFF/ PLT) (REFL ) platelet count 351 thous and/u L 140-40 0 normal Not Available [facility] [place] [facility] [address], [place], [address], 06/03/2025 14:00:24 06/01/20 25 06/03/2025 CBC (INCL UDES DIFF/ PLT) (REFL ) MPV 10.7 fL 7.5-12 .5 normal Not Available [facility] [address], [place], [address], 06/03/2025 14:00:24 06/01/20 25 06/03/2025 CBC (INCL UDES DIFF/ PLT) (REFL ) absolute neutrophils 4818 cells /uL 1500-7 800 normal Not Available [facility] [place] [facility] [address], [place], [address], 06/03/2025 14:00:24 06/01/20 25 06/03/2025 CBC (INCL UDES DIFF/ PLT) (REFL ) absolute lymphocytes 2014 cells /uL 850-39 00 normal Not Available [facility] [place] [facility] [address], [place], [address], 06/03/2025 14:00:24 06/01/20 25 06/03/2025 CBC (INCL UDES DIFF/ PLT) (REFL ) absolute monocytes 547 cells /uL 200-95 0 normal Not Available [facility] [address], [place], [address], 06/03/2025 14:00:24 06/01/20 25 06/03/2025 CBC (INCL UDES DIFF/ PLT) (REFL ) absolute eosinophils 160 cells /uL 15-500 normal Not Available [facility] [address], [place], [address], 06/03/2025 14:00:24 06/01/20 25 06/03/2025 CBC (INCL UDES DIFF/ PLT) (REFL ) absolute basophils 61 cells /uL 0-200 normal Not Available [facility] [address], [place], [address], 06/03/2025 14:00:24 06/01/20 25 06/03/2025 CBC (INCL UDES DIFF/ PLT) (REFL ) neutrophils 63.4 % normal Not Available [facility] [address], [place], [address], 06/03/2025 14:00:24 06/01/20 25 06/03/2025 CBC (INCL UDES DIFF/ PLT) (REFL ) lymphocytes 26.5 % normal Not Available [facility] [address], [address], 06/03/2025 14:00:24 06/01/20 25 06/03/2025 CBC (INCL UDES DIFF/ PLT) (REFL ) monocytes 7.2 % normal Not Available [facility], [address], 06/03/2025 14:00:24 06/01/20 25 06/03/2025 CBC (INCL UDES DIFF/ PLT) (REFL ) eosinophils 2.1 % normal Not Available [facility] [place] [facility] [address], [place], [address], 06/03/2025 14:00:24 06/01/20 25 06/03/2025 CBC (INCL UDES DIFF/ PLT) (REFL ) basophils 0.8 % normal Not Available [facility] [place] [facility] [address], [place], [address], 06/03/2025 14:00:24 06/01/20 25 06/03/2025 TSH W/REF TACOS TO FT4 TSH w/reflex to FT4 1.55 mIU/L 0.40-4 .50 normal Not Available [facility] [place] [facility] [address], [place], [address], 06/03/2025 14:00:24 06/01/20 25 06/03/2025 HEMOG LOBIN A1C hemoglobin A1C 5.4 % <5.7 normal For the purpo se of screkelly ludwig for the prese nce of diabe anahi: <5.7% Consi stent with the absen ce of diabe anahi 5.7-6 .4% Consi stent with incre ased risk for diabe anahi (pred iabet es) > or =6.5% Consi stent with diabe anahi This assay resul t is consi stent with a decre ased risk of diabe anahi. Curre ntly, no conse nsus exist s telma garzon use of hemog lobin A1c for diagn osis of diabe anahi in child [place]. Accor ding to Ameri can Diabe anahi Ass[employer] iatio n (ADA) guide lines , hemog lobin A1c <7.0% repre sents optim al contr ol in non-p regna nt diabe tic patie nts. Diffe rent metri cs may apply to speci fic patie nt popul ation s. Stand ards of Medic al Care in Diabe anahi(A DA). Not Available [facility] [place] [facility] [address], [place], [address], 06/03/2025 14:00:25 06/01/20 25 06/03/2025 CULTU RE, URINE , ROUTI NE culture, urine, routine SEE NOTE abnormal CULTU RE, URINE , ROUTI NE Micro Numbe r: [id number] Test Statu s: Final Speci men Sourc e: Urine Speci men Quali ty: Adequ ate Resul t: 10,00 0-49, 000 CFU/m L of Esche frandy a coli COMME NT: Addit ional non-p redom inati ng organ ism(s ) isola carolann. These organ isms, commo nly found on exter nal and inter nal genit bernadine, are consi dered colon izers . No furth er testi ng perfo rmed. E.col i ----- ----- ----- - INT SOTERO AMOX/ CLAVU LANAT E S <=2 AMP/S ULBAC DIEHL S <=2 CEFAZ JAMES I 4 CEFEP BELEM S <=0.1 2 CEFTA ZIDIM E S <=0.5 CEFTR IAXON E S <=0.2 5 CIPRO FLOXA ANURADHA S <=0.0 6 GENTA MICIN S <=1 IMIPE NEM S <=0.2 5 LEVOF LOXAC IN S <=0.1 2 MEROP ENEM S <=0.2 5 NITRO FURAN TOIN S 32 PIP/T AZOBA CTAM S <=4 TRIME THOPR IM/POWER LFA S <=20 S = Susce ptibl e I = Inter media te R = Resis tant NS = Not susce ptibl e SDD = Susce ptibl e Dose Depen dent * = Not Teste d NR = Not Repor carolann NN = See Thera py Comme nts Not Available [facility] [place] [facility] [address] [place] [address] Levon Xiao, [place], [address], 06/03/2025 19:33:42 07/22/19 24 07/22/2023 MAMMO , scree oziel, tomos ynthe sis, bilat eral, w/ CAD MAMMOG TODD SCREEN ING BILATE RAL 3D DEWEY WITH CAD TECHNI QUE: Full field digita l mammog ray synthe sized (2-D) and Tomosy nthesi s (3-D) was perfor med. COMPAR NAKIA: 2020 HISTOR Y: Screen ing FINDIN GS: CC and MLO views of bilate ral breast s perfor med. BREAST DENSIT Y: Scatte red fibrog landul ar densit ies within the breast parenc hyma (25-50 % fibrog landul ar tissue ; Catego ry B). No domina nt masses , lesion s, areas of matt ectura l distor tion or suspic ious calcif icatio ns were identi fied. There are no second merlene signs for malign thien. CAD was utiliz ed. IMPRES DANA: 1. No mammog raphic eviden ce of malign thien. 2. Recomm end routin e mammog raphic screen ing in one year. BIRADS 2: Benign findin gs 3342 F The patien t has been inform ed about her/hi s breast densit y by a letter contfidencio ludwig a plain langua ge report , as requir ed by [place] bill 485. Sessio n: Separa te Report review ed and signed by : Dr. Ar Hanley MD on 024 1:57 PM. Workst ation Name - [facility] READ04 SCREEN ING Unknow n ARRAY( [id number]) ARRAY( [id number]) ARRAY( [id number]) ARRAY( [id number]) ARRAY( [id number]) ARRAY( [id number]) ARRAY( [id number] [id number]) ARRAY( [id number] c3a8) ARRAY( [id number]) ARRAY( [id number]) imuni [facility] ([facility]) [address], [place], [address], 07/22/2023 15:50:37 09/05/19 25 09/01/2024 MAMMO , scree oziel, tomos ynthe sis, bilat eral, w/ CAD No observ ation record ed. [facility] [address] [facility], [place], [address], 09/27/2024 10:22:59 09/16/1909/14/2024 US, fátima quinn No observ ation record ed. [facility] ([facility]) [address], [place], [address], 09/15/2024 10:23:16 Result Notes Documentation Provider Name and Address Organization Details Recorded Time Mammo, Screening, Tomosynthesis, Bilateral, W/ Cad : MAMMOGRAM SCREENING BILATERAL 3D DEWEY WITH CAD TECHNIQUE: Full field digital mammography synthesized (2-D) and Tomosynthesis (3-D) was performed. COMPARISON: 2019 HISTORY: Screening FINDINGS: CC and MLO views of bilateral breasts performed. BREAST DENSITY: Scattered fibroglandular densities within the breast parenchyma (25-50% fibroglandular tissue; Category B). No dominant masses, lesions, areas of architectural distortion or suspicious calcifications were identified. There are no secondary signs for malignancy. CAD was utilized. IMPRESSION: 1. No mammographic evidence of malignancy. 2. Recommend routine mammographic screening in one year. BIRADS 2: Benign findings 3342 F The patient has been informed about her/his breast density by a letter containing a plain language report , as required by [place] [employer] bill 485. Session: Separate Report reviewed and signed by : Dr. Ar Hanley MD on 07/22/2023 1:57 PM. Workstation Name - [id number] SCREENING Unknown ARRAY([id number]) ARRAY([id number]) ARRAY([id number]) ARRAY([id number]) ARRAY([id number]) ARRAY([id number]) ARRAY([id number]) ARRAY([id number]) ARRAY([id number]) ARRAY([id number]) Justin Arellano MD [address] [place] [address], [address] Floor, [place], [address], [place] - [facility] 07/22/2023 15:50:37 Problems Name Problem SNOMED Code Status Onset Date Resolution Date Notes Provider Name and Address Organization Details Recorded Time Asthmatic bronchitis 224674002 Active 2022 Kirstin Davilasaerachel null, [place] - [facility] [place] 3 15:07:46 Obesity 474495934 Active 2022 Kirstin Stasaerachel null, [place] - [place] [facility] [place] 3 15:07:50 Morbid obesity 938266741 Active 2023 Justin Arellano MD [address] [place] [address], [address] [place] [address], [phone], [place] [facility] [place] 4 11:06:25 Menopausal symptom 60221361 Active 2023 Justin Arellano MD [address] [place] [address], [address] [place] [address], [phone], [place] [facility] [place] 4 15:30:42 Edema of lower extremity 305007808 Active 2023 Justin Arellano MD [address] [place] [address], [address] [place] [address], [phone], [place] [facility] [place] 4 07:58:50 Mood disorder 93881994 Active 2024 Justin Arellano MD [address] [place] [address], [address] [place] [address], [phone], [place] [facility] [place] 5 16:44:39 Breast finding 585897337 Active 2024 Justin Arellano MD [address] [place] [address], [address] [place] [address], [phone], [place] [facility] [place] 5 08:01:34 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 Procedures Surgical History Date Name Laterality Status Provider Name and Address Organization Details Recorded Time 09/22/19 25 colonoscopy completed Justin Arellano MD 21 [place] [address], [address] [place] [address], [phone], [place] [facility] [place] 09/22/2024 08:38:43 09/02/19 25 Date of Last Mammogram completed Justin Arellano MD [address] [place] [address] Floor, [place], [phone], [place] - CT [facility] 06/04/2025 08:44:23 07/29/19 23 Date of Last Pap Smear completed Kirstin Stalega CT - CT [facility] 04/16/2023 15:10:49 02/29/20 20 Colorectal ca screen doc rev completed Kirstin Stalega CT - CT [facility] 04/16/2023 15:10:04 section completed Kirstin Stalega CT - CT [facility] 04/16/2023 15:09:30 Imaging Results None recorded. Procedure Notes None recorded. Medical Equipment None Reported. Allergies Allergen ID Allergen Name Allergen Category Reaction Reaction Severity Criticality Documentation Date Start Date Code Code System Note Provider Name and Address Organization Details Recorded Time 220218 Product containin g penicilli n (product) medicatio n Not available Not available Not available 11/16/2022 43075 8001 SNOMED Jenna Hightower null, CT - [facility] 3 15:44:58 393895 amoxicill in medicatio n Not available Not available Not available 04/16/2023 723 RxNorm Susan e Stalega null, CT - CT [facility] 3 15:07:40 [id number] lisinopri l medicatio n rash Not available Not available 04/20/2023 71238 RxNorm Susan e Stalega null, CT - CT [facility] 3 09:22:24 Medications Name Sig Start Date Stop Date Status Note LastModified by Organization Details LastModified Time desonide 0.05 % topical cream APPLY TO AFFECTED AREA ON SIDE OF LIP TWICE DAILY (MIX WITH KETOCONA ZOLE CREAM). active Not Available Not Available No t Available metformin 500 mg tablet TAKE 1 TABLET DAILY 2024 active Not Available Not Available Not Avai lable prednison e 10 mg tablet PLEASE SEE ATTACHED FOR DETAILED DIRECTIO NS 04/20 completed Not Available Not Available Not Available clindamyc in HCl 300 mg capsule TAKE 1 CAPSULE BY MOUTH 3 TIMES A DAY 04/20 completed Not Available Not Available Not Available azithromy anuradha 250 mg tablet TAKE 2 TABLET ON YOUR FIRST DAY AND THEN TAKE 1 TABLET EACH DAY FOR 4 DAYS 10/28 completed Not Available Not Available Not Available tretinoin 0.025 % topical cream APPLY PEA SIZE AMOUNT TO FACE NIGHTLY active Not Available Not Available No t Available topiramat e 25 mg tablet TAKE 1 TABLET BY MOUTH EVERY DAY 07/26 completed Not Available Not Available Not Available amlodipin e 5 mg tablet TAKE 1 TABLET (5 MG TOTAL) BY MOUTH DAILY. active Not Available Not Available No t Available minoxidil 2.5 mg tablet Take 0.5 tablets every day by oral route. 2024 active Not Available Not Available Not Avai lable diazepam 2 mg tablet TAKE 1 TABLET BY MOUTH TONIGHT THEN 1 TABLET 1 HOUR PRIOR TO DENTAL PROCEDUR E 11/16 completed Not Available Not Available Not Available codeine 10 mg-guaife nesin 100 mg/5 mL oral liquid TAKE 10 ML BY MOUTH EVERY 4 HOURS 04/20 completed Not Available Not Available Not Available lisinopri l 5 mg tablet TAKE 1 TABLET (5 MG TOTAL) BY MOUTH DAILY. 04/20 completed Not Available Not Available Not Available albuterol sulfate HFA 90 mcg/actua tion aerosol inhaler INHALE 2 PUFFS EVERY 4 HOURS BY INHALATI ON ROUTE NEEDED 04/20 completed Not Available Not Available Not Available estradiol 0.0375 mg/24 hr semiweekl y transderm al patch APPLY 1 PATCH TRANSDER WENDY TWICE A WEEK 2024 active Not Available Not Available Not Avai lable ketoconaz ole 2 % topical cream USE ON THE AFFECTED AREAS ON SIDE OF LIPS TWICE DAILY (MIX WITH DESONIDE CREAM). active Not Available Not Available No t Available progester one micronize d 100 mg capsule TAKE 1 CAPSULE DAILY 2024 active Not Available Not Available Not Avai lable escitalop todd 10 mg tablet TAKE 1 TABLET BY MOUTH EVERY DAY FOR 30 DAYS 10/28 completed Not Available Not Available Not Available estradiol 0.0375 mg/24 hr weekly transderm al patch APPLY 1 PATCH TRANSDER WENDY TWICE A WEEK 01/12 completed Not Available Not Available Not Available Sutab 1.479-0.1 88-0.225 gram tablet TAKE DIRECTED FOR COLONOSC OPY/GI PROCEDUR E. SEE ADMINIST RATION INSTRUCT IONS active Not Available Not Available No t Available Opzelura 1.5 % topical cream Apply to the affected area as needed active Not Available Not Available No t Available Ozempic 2 mg/dose (8 mg/3 mL) subcutane ous pen injector Inject by subcutan eous route for 28 days. 10/28 completed Not Available Not Available Not Available Mounjaro 2.5 mg/0.5 mL subcutane ous pen injector INJECT 2.5 MG SUBCUTAN EOUSLY WEEKLY 10/28 completed Not Available Not Available Not Available Ozempic 0.25 mg or 0.5 mg (2 mg/3 mL) subcutane ous pen injector 0.25 mg weekly 01/04 completed Not Available Not Available Not Available Zepbound 5 mg/0.5 mL subcutane ous pen injector Inject 0.5 mL by subcutan eous route. active Not Available Not Available No t Available Zepbound 2.5 mg/0.5 mL subcutane ous solution INJECT 0.5 ML (2.5 MG) UNDER THE SKIN ONCE WEEKLY (0.5ML= 50 UNITS) 04/30 completed Not Available Not Available Not Available Zepbound 5 mg/0.5 mL subcutane ous solution Inject 0.5 mL every week by subcutan eous route. 04/30 completed CURRENT DOSE Not Available Not Available Not Available Zepbound 7.5 mg/0.5 mL subcutane ous solution Inject 0.5 mL every week by subcutan eous route. 04/30 completed Not Available Not Available Not Available Zepbound 10 mg/0.5 mL subcutane ous solution INJECT 0.5 ML (10 MG) UNDER THE SKIN ONCE WEEKLY (0.5ML= 50 UNITS) 2024 active Not Available Not Available Not Avai lable Vitals Date Recorded Body height Body mass index (BMI) Body weight Respiratory rate Heart rate Oxygen saturation Systolic And Diastolic Provider Name and Address Organization Details Last Updated DateTime 4 164.47 cm 40.7 kg/m2 793622. 95 g 16 /min 91 /min 97 % 142/80 mm[Hg] Susan mendoza Stalega CT - CT [facility] [place] 4 15:09:10 Date Recorded Body height Body mass index (BMI) Body weight Respiratory rate Oxygen saturation Heart rate Systolic And Diastolic Provider Name and Address Organization Details Last Updated DateTime 5 164.47 cm 41.8 kg/m2 550907. 5 g 16 /min 97 % 80 /min 126/70 mm[Hg] Nuzhat Read CT - CT [facility] [place] 5 15:08:15 Date Recorded Body weight Respiratory rate Heart rate Oxygen saturation Body temperature Systolic And Diastolic Provider Name and Address Organization Details Last Updated DateTime 4 479406. 02 g 20 /min 89 /min 96 % 99.6 [degF] 132/88 mm[Hg] Susan mendoza Stalega CT [facility] [place] 4 08:55:43 Date Recorded Systolic And Diastolic Provider Name and Address Organization Details Last Updated DateTime 11/16/2022 136/86 mm[Hg] Justin Arellano MD [address] [place] [address], [address] [place] [address], [phone], [place] [facility] [place] 11/16/2022 16:15:21 Date Recorded Body temperature Heart rate Oxygen saturation Systolic And Diastolic Provider Name and Address Organization Details Last Updated DateTime 11/16/2022 98.5 [degF] 89 /min 95 % 145/90 mm[Hg] Jenna Hightower CT [facility] [place] 3 15:44:49 Date Recorded Body mass index (BMI) Body height Provider Name and Address Organization Details Last Updated DateTime 04/20/2023 40.4 kg/m2 163.2 cm Justin Arellano MD [address] [place] [address], [address] [place] [address], [phone], [place] - [facility] [place] 04/20/2023 09:33:56 Date Recorded Body weight Respiratory rate Heart rate Oxygen saturation Systolic And Diastolic Provider Name and Address Organization Details Last Updated DateTime 3 741244. 39 g 16 /min 86 /min 98 % 126/83 mm[Hg] Susan mendoza Stalega CT - CT [facility] [place] 3 09:20:10 Social History Question Answer Notes LastModified by [employer] Details LastModified Time Tobacco Smoking Status Never Smoker Justin Arellano MD [address] [place] [address], [address] Floor, [place], [phone], CT - CT [facility] 07/06/2023 15:23:55 What Type Of Diet Are You Following? SPECIFIC Information not available 07/06/2023 What Is Your Relationship Status? Information not available 07/06/2023 Do You Use Your Seat Belt Or Car Seat Routinely? Yes Information not available 07/06/2023 Sex: Unknown Functional Status Question Answer Note LastModified by Organizat ion Details LastModified Time Do you or have you ever used any other forms of tobacco or nicotine? No Information not available 07/26/2024 What is your level of alcohol consumption? Occasional [email or web address] Information not available 04/16/2023 Are you currently employed? Yes Information not available 07/06/2023 What is your exercise level? Occasional Information not available 07/06/2023 Mental Status None recorded. Family History Relationship Description Onset Age of this Age Resolved Age Notes LastModified by Organization Details LastModified Time Mother Coronary arterioscler osis [email or web address] Not available 2022 15:09:04 Mother Diabetes mellitus [email or web address] Not available 2022 15:09:10 Medical History No medical history recorded. Gynecological History Statement/Question Response Menses Monthly N Mammogram Result Normal If Post Menopausal, Age at Menopause 56 Date of Last Pap Smear 07/29/2022 Date of Last Mammogram 09/01/2024 Most Recent Bone Density Post Menopausal Bleeding N Obstetrics History GPAL:G 0 P 0 0 0 0 Immunizations Vaccine Type Date Status Note Provider Nam e and Address Organization Details Recorded Time SARS-COV-2 (COVID-19) vaccine, UNSPECIFIED 4 completed Alaina trevino, [place] - [facility] 04/18/2024 09:02:27 influenza, unspecified formulation 4 completed Alaina trevino, CT - [facility] 04/18/2024 09:02:40 Tdap 0 completed Kirstin Stalega null, CT - CT [facility] [place] 04/16/2023 15:11:22 influenza, unspecified formulation 3 completed Kirstin Stalega null, CT - CT [facility] [place] 07/06/2023 15:14:24 zoster recombinant 4 completed Kirstin Stalega null, CT - CT [facility] [place] 08/25/2023 13:55:32 Pneumococcal conjugate PCV20, polysaccharide PMA631 conjugate, adjuvant, PF 4 completed Kirstin Stalega null, CT - CT [facility] [place] 08/25/2023 13:55:32 Past Encounters Encounter ID Performer Location Encounter Start Date Encounter Closed Date Diagnosis/Indication Diagnosis SNOMED-CT Code Diagnosis ICD10 Code Diagnosis IMO Codes Diagnosis Note [id number] MD JANAE [facility]_ [facility] [place] [place] [address] 11/16/2022 15:28:49 11/16/2022 16:15:36 Asthmatic bronchitis 373384361 J45.909 use Rxcall if no improvemen t in 5-7 days [id number] Justin Arellano MD [facility] [place] [address] 04/20/2023 09:09:08 04/20/2023 09:47:16 Obesity 069791062 Z68.41 E66.01 will refill her Rx to continue treatmentc ontinue diet and exercise [id number] Justin Arellano MD [facility] [place] [address] 07/06/2023 14:56:55 07/06/2023 15:47:04 Adult health examination 979668767 Z00.00 regular exercisere cent labs reviewedre turn in one year Screening for malignant neoplasm of breast 869335165 Z12.39 ordered Screening for malignant neoplasm of colon 916566356 Z12.11 referred for colonoscop y Screening for cardiovascular system disease 342386196 Z13.[address] Shukri Weathers Genitourin merlene disease screening 515350513 Z13.89 Body mass index 40+ - severely obese 618274083 Z68.41 continue efforts to lose weight Morbid obesity 882223333 E66.01 resume Rx Menopausal symptom 98897 002 N95.1 F39 try Rxeffects and side effects explaineds ee therapist [id number] Priti Jauregui MD [facility] [place] [address] 10/29/2023 08:43:05 10/29/2023 09:17:04 Edema of lower extremity 563756137 R60.0 Patient's bilateral ankle swelling has resolvedEn couraged a healthy diet and regular exercise [id number] Justin Arellano MD [facility] [place] [place] [address] 07/26/2024 14:50:57 07/26/2024 15:47:37 Adult health examination 451478101 Z00.01 regular exercisech holly labsreturn in one year Screening for malignant neoplasm of breast 228732014 Z12.39 ordered Screening for malignant neoplasm of colon 696259666 Z12.11 referred for colonoscop y Screening for cardiovascular system disease 894602013 Z13.[address] Shukri Weathers Body mass index 40+ - severely obese 022929208 Z68.41 continue efforts to lose weight Morbid obesity 965943094 E66.01 continue Rx, dietincrea se exercise Mood disorder 70884770 F 39 increase exerciseta lk to therapistf ind outlets Health Concerns Section Related Observation LastModified by Organization Detai ls LastModified Time None Recorded Concern Status LastModified by Organization Details LastModified Time None Recorded Advance Directives Directive None Recorded Payers Insurance Date Sequence Insurance Name Policy Number Policy Wang Covered Member ID Wang Member ID Guarantor Name 05/31/2025 1 [employer] ([employer]) [id number] Jessica Ed [id number] Jessica Ed 07/23/2024 1 [employer] [place]) [id number] Jessica Ed [id number] Jessica Ed 07/05/2023 1 [place] [id number] Jessica Ed [id number] Jessica Ward Notes Date Note Type Note Provider Name and Address Organization Details Recorded Time 11/16/2022 text/html Upper Respirator y SymptomsReported by PatientUpper Respiratory SymptomsFor symptoms, patient reportscough,wheezing, nasal congestion, andpost nasal drip. For duration, patient itkvlft03 days. For context, patient reportsno sick contacts. For modifying factors, patient reportsotc medication. For associated symptoms, patient reportsno feverandno sweats.ROS as noted in the HPI For the past [ten] [days] patient has a cough, dry, keeps her up at night, worse when talking or laughing. Patient denies shortness of breath or wheezing. No fever or chills or night sweats. The appetite is fine and the energy has been up and down. Patient took OTC medication but it didn't help. Justin Arellano MD [address] [place] [address], [address] [place] [address], [phone], [facility] 11/16/2022 16:15:35 04/20/2023 text/html She was on Ozempic and metformin from a weight loss program and lost weight but now she doesn't have them to prescribe and would like us to take that over.She tolerated the medications well and was happy with the results and would like to continue the treatment.She is also following a healthy diet and tries to do some physical activity to help lose weight. Justin Arellano MD [address] [place] [address], [address] [place] [address], [place], [phone], [facility] 04/20/2023 09:49:34 07/06/2023 text/html Annual Wellness Visit - FemaleReported by PatientWellness HistoryFor wellness history, patient reportsdoes not use tobacco products,no alcohol/does not consume alcohol in excess,uses seatbelts, anduses sunscreen/protection. She feels bad about herself because she didn't lose weight, was not able to get the Ozempic due to lack of coverage.She also has irritable mood and sleep disturbance due to menopause.She finds that she can have difficulty focusing at work sometimes.She is under stress at work and doesn't get time to exercise.Recent labs were fine, just the cholesterol is slightly elevated. Justin Arellano MD [address] [place] [address], [address] [place] [address], [phone], [facility] 07/06/2023 17:02:14 10/29/2023 text/html ROS as noted in the HPI 58 year old female here at the office with complaints of ankle swelling. The patient reports having bilateral non painful ankle swelling for the past two days. Denies recent trauma or injuries. No new medications or supplements. She admits having a diet high in sodium and having a hard time losing weight. She is able to walk and bear weight without difficulty. This morning her ankle swelling has resolved. The patient denies fever, chills, cough, wheezing, orthopnea, urinary symptoms, abdominal pain, chest pain, palpitations, shortness of breath, and dizziness. GAVIOTA BRYANT [address] [place] [address], [phone], [facility] 10/31/2023 12:23:41 07/26/2024 text/html Annual Wellness Visit - FemaleReported by PatientWellness HistoryFor wellness history, patient reportsfeels well with no/few symptoms,healthy diet,exercises on a regular basis,good physical condition,does not use tobacco products,no alcohol/does not consume alcohol in excess,uses seatbelts, anduses sunscreen/protection. 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 Her sleep is interrupted and she can feel tired during the day. Justin Arellano MD [address] [place] [address], [address] [place] [address], [phone], [facility] 07/26/2024 16:45:27 OBGyn Episode No OBEpisode recorded.
--- OUTSIDE RECORDS SUMMARY | 2025-06-06 07:26 | XMS_ITS | Clinical Summary ---
Author Organization [employer] [facility] Address [address] [place] [address] Care Team Providers Care Last Remodeler Repairer Name Role Phone Lara Cabezas MD Primary Care Provider [phone] Reny Morales FIRER MARINE Unavailable [phone] Allergies Active Allergy Reactions Criticality Noted Date Comments Lisinopril Rash Low 02/07/2024 Penicillins Rash Low 02/07/2024 Medications amLODIPine (Norvasc) 5 mg tablet Take 1 tablet (5 mg total) by mouth. 4 Active metFORMIN (Glucophage) 500 mg tablet Take 1 tablet (500 mg total) by mouth 1 (one) time each day. Active minoxidiL (Loniten) 2.5 mg tablet Take 0.5 tablets (1.25 mg total) by mouth 1 (one) time each day. Active tretinoin (RETIN-A) 0.025 % cream APPLY PEA SIZE AMOUNT TO FACE NIGHTLY 4 Active Opzelura 1.5 % cream Apply to the affected area as needed Active progesterone (PROMETRIUM) 100 mg capsule Take 1 tablet by mouth 1 (one) time each day. 4 Active estradioL (VIVELLE-DOT) 0.0375 mg/24 hr Apply 1 patch twice a week by transdermal route for 30 days. Active topiramate (Topamax) 25 mg tablet TAKE 1 TABLET BY MOUTH 1 TIME EACH DAY. 90 tablet 1 4 Active Active Problems Problem Noted Date Diagnosed Date Primary hypertension 02/07/2024 Obesity 11/03/2005 Hyperlipidemia 10/05/2005 Migraine 10/05/2005 Immunizations Immunization Administration Dates Next Due INFLUENZA, INJECTABLE, MDCK, QUADRIVALENT, PRESERVATIVE FREE 04/16/2023 Influenza, Unspecified 04/12/2024 Influenza, injectable, quadr ivalent, preservative free 04/30/2022,03/22/2021,03/25/2020 Moderna 12+ Vaccination (Spikevax) 04/16/2023 Moderna Bivalent 12+ Vaccination 04/30/2022 Moderna SARS-CoV-2 Booster Vaccination 1 Moderna SARS-CoV-2 Vaccination 08/05/2020,2020 Pfizer Schumacher Cap SARS-COV-2 Vaccination 2 Pneumococcal Conjugate 20-Valent 08/23/2023 SARS-CoV-2, Unspecified 04/12/2024 Tdap 01/03/2020,10/30/2010 Zoster, Recombinant 08/23/2023,04/16/2023 Family History Medical History Relation Name Comments Diabetes Brother Hypertension Brother Diabetes Father Heart disease Father Hypertension Father Diabetes Mother Heart disease Mother Hypertension Mother Relation Name Status Comments Brother Father Mother Social History Tobacco Use Types Packs/Day Years Used Date Smoking Tobacco: Never Tobacco Cessation:Counseling Given: Not Answered Alcohol Use Standard Drinks/Week Comments Yes 0 (1 standard drink = 0.6 oz pur e alcohol) Comments Unknown Sex and Gender Information Value Date Recorded Sex Assigned at Not on file Legal Sex Female 8:18 AM EDT Gender Identity Not on file Sexual Orientation Not on file Last Filed Vital Signs Vital Sign Reading Time Taken Comments Blood Pressure 132/79 04/10/2024 2:48 PM EDT Pulse 72 04/10/2024 2:48 PM EDT Temperature 36.4 C (97.5 F) 04/10/2024 2:48 PM EDT Respiratory Rate - - Oxygen Saturation 98% 04/10/2024 2:48 PM EDT Inhaled Oxygen Concentration - - Weight 117.5 kg (259 lb) 04/10/2024 2:48 PM EDT Height 162.6 cm (5' 4 ) 04/10/2024 2:48 PM EDT Body Mass Index 44.46 04/10/2024 2:48 PM EDT Plan of Treatment Scheduled Referrals Name Type Priority Associated Diagnoses Order Schedule Ambulatory referral to Medical Weight [facility] Clinic Outpatient Referral Routine Body mass index (BMI) 40.0-44.9, adult (HCC) Expected: 11/29/2023, Expires: 05/30/2024 Health Maintenance Due Date Last Done Comments CT Colonography 1967 Colonoscopy 1967 Colorectal Cancer Screening 1967 FIT-DNA 1967 FIT 1967 FOBT 1967 Hepatitis C Screening 1967 Sigmoidoscopy 1967 HPV/Cotest 10/08/1997 Annual Physical Exam 07/06/2024 07/06/2023, 10/24/19 Mammogram 07/22/2024 07/22/2023, 06/29, 07/22/2023, Additional history exists COVID-19 Vaccine ( season) 2025 04/12/2024, 04/16/2023, 04/30/2022, Additional history exists Influenza Vaccine (#1) 2025 , 04/16/2023, 04/30/2022, Additional history exists Cervical Cancer Screening 07/01/2025 Pap Smear 07/01/2025 07/01/2022 Tdap and Td Vaccines Adult 01/02/2030 01/03/2020, Pneumococcal Vaccine: 50+ Years Completed 08/23/2023 Zoster Vaccines Completed 08/23/2023, 04/16/2023 Lipid Panel Discontinued 02/22/2024 HIB Vaccines Aged Out No longer eligi ble based on patient's age to complete this topic HPV Vaccines (No Doses Required) Completed Hepatitis A Vaccines Aged Out No long er eligible based on patient's age to complete this topic IPV Vaccines Aged Out No longer eligi ble based on patient's age to complete this topic Meningococcal Vaccine Aged Out No melia kassandra eligible based on patient's age to complete this topic RSV <20 Months Aged Out No longer carola gible based on patient's age to complete this topic Procedures Procedure Name Priority Date/Time Associated Diagnosis Comments LIPID PANEL W/REFL DIRECT LDL, CARDIO IQ (R) Routine 02/22/2024 8:36 AM EDT Vitamin D deficiency Obesity, Class III, BMI 40-49.9 (morbid obesity) (HCC) Prediabetes Encounter for weight loss counseling B12 deficiency Other fatigue from Last 3 Months or Most Recently Relevant to Health Maintenance Results * (ABNORMAL) Lipid Panel with Ratios (02/22/2024 8:36 AM EDT) Cholesterol 225(H) <200 mg/dL [facility] Comment:Sample slightly britt ricky. HDL CHOLESTEROL 55 >49 mg/dL [facility] Comment:Sample slightly britt ricky. Triglycerides 316(H) <150 mg/dL [facility] Comment: Sample slightly lipemic. If a non fasting specimen was collected, consider repeat triglyceride testing on a fasting specimen if clinically indicated. Nancy et al. J of Clin. Lipidol. 215; 9:129-169. LDL-CHOLESTEROL 125(H) <100 mg/dL (calc) 90 Comment: Desirable range <100 mg/dL for primary prevention; <70 mg/dL for patients with CHD or diabetic patients with >= 2 CHD risk factors. LDL-C is now calculated using the Biju-Smith calculation, which is a validated novel method providing better accuracy than the Friedewald equation in the estimation of LDL-C. Biju SS et al. PATRICK. 2013;310(19): 1982-5013 (http://education.T[employer]s.[employer]/faq/BNJ612) LDL-C is now calculated using the Biju-Smith calculation, which is a validated novel method providing better accuracy than the Friedewald equation in the estimation of LDL-C. Biju SS et al. PATRICK. 2013;310(19): 9218-5801 (http://education.[employer].com/faq/QTO839) Cholesterol HDL Ratio 4.1 <5.0 calc [facility] NON-HDL CHOLESTEROL 170(H) <130 mg/dL (calc) [facility] Comment: For patients with diabetes plus 1 major ASCVD risk factor, treating to a non-HDL-C goal of <100 mg/dL (LDL-C of <70 mg/dL) is considered a therapeutic option. For patients with diabetes plus 1 major ASCVD risk factor, treating to a non-HDL-C goal of <100 mg/dL (LDL-C of <70 mg/dL) is considered a therapeutic option. Blood Venous blood / Unknown 02/22/2024 8:36 AM EDT 02/22/2024 8:36 AM EDT Narrative [facility] - 02/27/2024 10:16 AM EDT FASTING:NO FASTING: NO Resulting Agency Comment Performing Organization Information: Site ID: [id number] Name: [facility] Address: [facility] [address], [address] [place] [address] Director: Salo Torres PhD,[facility] Reny Morales APRN LAB BLOOD ORDERABLES Fi nal Result [facility] [address], [place] [address], [place] [facility] from Last 3 Months or Most Recently Relevant to Health Maintenance Care Teams Last Remodeler Repairer Relationship Specialty Start Date End Date Lara Cabezas MD [address] [place] [phone] PCP - General Internal Medicine 02/07/24 Reny Morales APRN [address] [place], [place] [address] [facility] [place] [address] Nurse Practitioner General Surgery 02/07/24
--- OUTSIDE RECORDS SUMMARY | 2025-06-06 07:26 | XMS_ITS | Encounter Summary ---
Author Organization [facility] Address [address] [place] [address] Care Team Providers Care Python Architect Name Role Phone Lara Cabezas MD Primary Care Provider [phone] Oral Weathers MD Unavailable [phone] Encounter Details Date Type Department Care Team (Late st Contact Info) Description 12/18/2022 Scanned Document [facility] Pulmonary [address] [place] [phone] Pulmonary, Scan Social History Tobacco Use Types Packs/Day Years Used Date Smoking Tobacco: Never Alcohol Use Standard Drinks/Week Comments Yes 0 (1 standard drink = 0.6 oz pur e alcohol) SOMETIMES Comments No Sex and Gender Information Value Date Recorded Sex Assigned at Female 08/20/2022 12:22 PM EST Legal Sex Female 5:14 PM EDT Gender Identity Female 08/20/2022 12:22 PM EST Sexual Orientation Heterosexual (straight) 08/20 12:22 PM EST Occupation Industry Job Start Date Job End Date Not on file Not on file Not on file Not on file COVID-19 Exposure Response Date Recorded In the last 10 days, have yo u been in contact with someone who was confirmed or suspected to have Coronavirus/COVID-19? No / Unsure 11/26/2022 2:49 PM EDT documented as of this encounter Plan of Treatment Upcoming Encounters Date Type Department Care Team (Late st Contact Info) Description 08/01/2025 4:00 PM EST Office Visit [facility] [place] [address] [place] [phone] Letty Tanner PASimoneC [address] [place] [address] documented as of this encounter Visit Diagnoses Not on filedocumented in this encounter Care Teams Python Architect Relationship Specialty Start Date End Date Lara Cabezas MD [address] [facility] [address] [place] [phone] PCP - General Internal Medicine 08/20/22 Oral Weathers MD [address] [place] [address] Primary Hospital Security Officer Cardiovascular Disease 08/27/22 documented as of this encounter
--- OUTSIDE RECORDS SUMMARY | 2025-06-06 07:26 | XMS_ITS | Encounter Summary ---
Author Organization [facility] Address [address] [place] [address] Care Team Providers Care Sales And Marketing Professional Name Role Phone Lara Cabezas MD Primary Care Provider [phone] Oral Weathers MD Unavailable [phone] Encounter Details Date Type Department Care Team (Late st Contact Info) Description 09/21/[address] [facility] [address] [facility] [address] [place] [address] Nikko Julio MD [address] [facility] [address] [place], [place] [id number] Social History Tobacco Use Types Packs/Day Years Used Date Smoking Tobacco: Never Alcohol Use Standard Drinks/Week Comments Yes 0 (1 standard drink = 0.6 oz pur e alcohol) SOMETIMES PHQ-2 Answer Date Recorded PHQ-2 Total Score 4 09/27/2023 Physical Activity Answer Date Recorded On average, how many days pe r week do you engage in moderate to strenuous exercise (like a brisk walk)? 2 days 09/27/2023 On average, how many minutes do you exercise per day at this level? 30 min 09/27/2023 Comments No Sex and Gender Information Value Date Recorded Sex Assigned at Female 08/20/2022 12:22 PM EST Legal Sex Female 5:14 PM EDT Gender Identity Female 08/20/2022 12:22 PM EST Sexual Orientation Heterosexual (straight) 08/20 12:22 PM EST Occupation Industry Job Start Date Job End Date Not on file Not on file Not on file Not on file documented as of this encounter Progress Notes * Nikko Julio MD - 09/21/2024 10:02 AM EDT The pathology from your recent colonoscopy revealed adenomatous polyp(s). Adenomatous polyps are small growths that arise from the lining of the large intestines (colon). Although polyps may not posean initial health risk, there is the potential for adenomatous polyps to become cancerous if not removed. There are several different types of polyps, some of which need closer monitoring than others. On your current specimen there was no evidence of malignancy (no cancer). The goal of treatment isto remove the adenomatous polyps, and thus prevent it from evolving into colon cancer. Repeat examinations are recommended to check if you have made any new pre-cancerous polyps that need removal. For this reason, we recommend a repeat colonoscopy in 5 years We hope that this information is helpfulto you. Your health and the quality of care you receive are important to us. If you have any questions please call the office to set up a telehealth visit to discuss. documented in this encounter Plan of Treatment Upcoming Encounters Date Type Department Care Team (Late st Contact Info) Description 08/01/2025 4:00 PM EST Office Visit [facility] [place] [address] [place] [phone] Letty Tanner PA-C [address] [place] [address] documented as of this encounter Procedures Procedure Name Priority Date/Time Associated Diagnosis Comments PATHOLOGY REPORT 09/21/2024 12:0 0 AM EDT documented in this encounter Results * Pathology (09/21/2024 12:00 AM EDT) us Nikko Julio MD PATHOLOGY/CYTOLOGY ORDERABLE S Final Result documented in this encounter Visit Diagnoses Not on filedocumented in this encounter Care Teams Sales And Marketing Professional Relationship Specialty Start Date End Date Lara Cabezas MD [address] [facility] [address] [place] [address] PCP - General Internal Medicine 08/20/22 Oral Weahters MD [address] [place] [address] Primary Meat Sales And Storage Manager Cardiovascular Disease 08/27/22 documented as of this encounter
--- OUTSIDE RECORDS SUMMARY | 2025-06-06 07:26 | XMS_ITS | Encounter Summary ---
Author Organization [facility] Address [address] [place] [address] Care Team Providers Care Home Coordinator Name Role Phone Lara Cabezas MD Primary Care Provider [phone] Oral Weathers MD Unavailable [phone] Encounter Details Date Type Department Care Team (Late st Contact Info) Description 05/06/2023 Scanned Document [facility] Pulmonary [address] [address] Pulmonary, Scan Social History Tobacco Use Types [...] on file documented as of this encounter Plan of Treatment Upcoming Encounters Date Type Department Care Team (Late st Contact Info) Description 08/01/2025 4:00 PM EST Office Visit [facility] [place] [address] [place] [phone] Letty Tanner, PA-C [address] [place] [address] documented as of this encounter Visit Diagnoses Not on filedocumented in this encounter Care Teams Home Coordinator Relationship Specialty Start Date End Date Lara Cabezas MD [address] [facility] [address] [place] [address] PCP - General Internal Medicine 08/20/22 Oral Weathers MD [address] [place] [address] Primary Economic Forecaster Cardiovascular Disease 08/27/22 documented as of this encounter
--- OUTSIDE RECORDS SUMMARY | 2025-06-06 07:26 | XMS_ITS | Encounter Summary ---
Author Organization [facility] Address [address] [place], [place] [id number] Care Team Providers Care Equipment Maintenance Technician Name Role Phone Lara Cabezas MD Primary Care Provider [phone] Reny Morales RECREATIONAL VEHICLE REPAIRER Unavailable [phone] Encounter Details Date Type Department Care Team (Latest Contact Info) Description 03/14/2024 Scanned Document [facility] [address] [place], [place] [phone] Reny Morales APRN [address] [facility] [place] [address] 03/14/24 DX Codes [facility] Social History Tobacco Use Types Packs/Day Years Used Date Smoking Tobacco: Never Alcohol Use Standard Drinks/Week Comments Yes 0 (1 standard drink = 0.6 oz pur e alcohol) Comments Unknown Sex and Gender Information Value Date Recorded Sex Assigned at Not on file Legal Sex Female 8:18 AM EDT Gender Identity Not on file Sexual Orientation Not on file documented as of this encounter Plan of Treatment Not on file documented as of this encounter Visit Diagnoses Not on filedocumented in this encounter Care Teams Equipment Maintenance Technician Relationship Specialty Start Date End Date Lara Cabezas MD [address] [place] [phone] PCP - General Internal Medicine 02/07/24 Reny Morales APRN [address] [facility] [place] [address] Nurse Practitioner General Surgery 02/07/24 documented as of this encounter
--- OUTSIDE RECORDS SUMMARY | 2025-06-06 07:26 | XMS_ITS | Clinical Summary ---
Author Organization Formerly [facility] Address [address] [place] [address] Care Team Providers Care Manager Apple Name Role Phone Lara Cabezas MD Primary Care Provider [phone] Oral Weathers MD Unavailable [phone] Allergies Active Allergy Reactions Criticality Noted Date Comments Lisinopril Hives Medium 11/26/2022 Other Other (See Comments) 09/11/2015 SEASONAL ALLERGIES REACTION IS POST NASAL DRIP Penicillins Anaphylaxis High 08/28/2022 Medications PREVIDENT 5000 SENSITIVE 1.1-5 % Paste 06/07/20 15 Active Blood Pressure Kit Please check your BP twice daily. Please chart these numbers. Lifelong use. Associated dg. Essential HTN. 1 kit 08/20/19 23 Active escitalopram (LEXAPRO) 10 MG tabletIndicatio ns:Class 3 severe obesity without serious comorbidity with body mass index (BMI) of 40.0 to 44.9 in adult, unspecified obesity type (HCC) 07/06/19 24 Active metFORMIN (GLUCOPHAGE) 500 MG tabletIndicatio ns:Class 3 severe obesity without serious comorbidity with body mass index (BMI) of 40.0 to 44.9 in adult, unspecified obesity type (HCC) Take 1 tablet (500 mg total) by mouth daily. Active estradiol (VIVELLE-DOT) 0.0375 MG/24HR external patch APPLY 1 PATCH TRANSDERMALLLY TWICE A WEEK Active minoxidil (LONITEN) 2.5 MG tablet Take 0.5 tablets (1.25 mg total) by mouth daily. Active progesterone (PROMETRIUM) 100 MG capsule Take 1 tablet by mouth daily. 01/11/20 24 Active tretinoin (RETIN-A) 0.025 % cream APPLY PEA SIZE AMOUNT TO FACE NIGHTLY 02/02/20 24 Active amLODIPine (NORVASC) 5 MG tabletIndicatio ns:Hypertension , unspecified type Take 1 tablet (5 mg total) by mouth daily. 90 tablet 3 07/19/19 25 Active semaglutide (OZEMPIC) (0.25 or 0.5 mg/dose pen) prefilled pen injection Inject under the skin once a week. Active meloxicam (MOBIC) 15 MG tabletIndicatio ns:Acute pain of left knee Take 1 tablet (15 mg total) by mouth daily. 14 tablet 05/21/20 25 Active Active Problems Problem Noted Date Diagnosed Date Acne vulgaris 10/24/2015 Elevated C-reactive protein 11/03/2005 Obesity 11/03/2005 Allergic rhinitis 10/05/2005 Hyperlipidemia 10/05/2005 Migraine 10/05/2005 Resolved Problems Problem Noted Date Diagnosed Date Resolved Date Dysthymic disorder 09/15/2010 6 Encounters Date Type Department Care Team Description 05/19/2025 12:35 PM EST Ancillary [facility] [address] [phone] 05/19/2025 12:30 PM EST [facility] [address] [phone] Macrus Cervantes PA Left knee pain, unspecified chronicity (Primary Dx); Primary osteoarthritis of left knee from Last 3 Months Immunizations Immunization Administration Dates Next Due Influenza Inactivated/Split Preservative Free IM 03/26/2009 Tdap 10/30/2010 Family History Medical History Relation Name Comments Asthma Father Emphysema Father Diabetes Mother Relation Name Status Comments Brother Alive Father Alive Mother Alive Social History Tobacco Use Types Packs/Day Years [...] file Not on file Not on file Last Filed Vital Signs Vital Sign Reading Time Taken Comments Blood Pressure 145/94 09/21/2024 10:25 AM EDT Pulse 84 09/21/2024 10:25 AM EDT Temperature 36.6 C (97.8 F) 09/21/2024 10:00 AM EDT Respiratory Rate 18 09/21/2024 10:25 AM EDT Oxygen Saturation 98% 09/21/2024 10:25 AM EDT Inhaled Oxygen Concentration - - Weight 111 kg (245 lb) 09/07/2024 2:22 PM EDT Height 165.1 cm (5' 5 ) 09/07/2024 2:22 PM EDT Body Mass Index 40.77 09/07/2024 2:22 PM EDT Plan of Treatment Upcoming Encounters Date Type Department Care Team (Late st Contact Info) Description 08/01/2025 4:00 PM EST Office Visit [facility] [place] [address] [place] [phone] Letty Tanner, PASimoneC [address] [place] [id number] Health Maintenance Due Date Last Done Comments Hepatitis C Virus Screening 1967 HIV Screening 10/08/1980 Hepatitis B Vaccines (1 of 3 - 19+ 3-dose series) 10/08/1986 Pap Smear (Ages 21-65) 10/08/1988 Mammogram 2007 Pneumococcal Vaccines 50+ (1 of 1 - PCV) 10/08/2017 RSV Vaccine 50 years and old er and Patients (1 - Risk 50-74 years 1-dose series) 10/08/2017 Zoster (Shingles) Vaccine (1 of 2) 10/08/2017 DTaP/Tdap/Td Vaccines (2 - T d or Tdap) 10/30/2020 10/30/2010 Colonoscopy 09/21/2034 09/21/2024 COVID-19 Vaccine Completed 03/01/2025, , 04/16/2023, Additional history exists Influenza Vaccine Completed 03/01/2025, , 04/12/2024, Additional history exists Procedures Procedure Name Priority Date/Time Associated Diagnosis Comments XR KNEE 4+ VIEWS-LEFT Routine 05/19/2025 12:33 PM EST Left knee pain, unspecified chronicity from Last 3 Months Results * XR Knee 4+ views-Left (05/19/2025 12:33 PM EST) Narrative OAH - 05/19/2025 12:33 PM EST This exam was performed in office at [facility] and images reviewed by orthopedic provider. Any findings are documented within ambulatory encounter note on date of service. us Fallon Andino APRN IMG DIAGNOSTIC IMAGING ORD ERABLES Final Result OA from Last 3 Months Insurance [facility] HMO/POS [facility] HMO/POS Member Subscriber Plan / Payer (Ef fective 2023-Present) Name:Jessica Ward Relation to Subscriber:Self Name:Jessica Ward Payer ID:[id number] Type:Not on file Address: [place] [phone] HMO/POS Member Subscriber Plan / Payer (Ef fective 2023-Present) Name:Jessica Ward Relation to Subscriber:Self Name:Jessica Ward Payer ID:[id number] Type:Not on file Address: [place] [phone] HMO/POS Member Subscriber Plan / Payer (Ef fective 2023-Present) Name:Jessica Ward Relation to Subscriber:Self Name:Jessica Ward Payer ID:[id number] Type:Not on file Address: [place] [phone] Care Teams Manager Apple Relationship Specialty Start Date End Date Lara Cabezas MD [address] [place] [address] - [place] [address] PCP - General Internal Medicine 08/20/22 Oral Weathers MD [facility] [place] [address] Primary Workflow Developer Cardiovascular Disease 08/27/22
--- OUTSIDE RECORDS SUMMARY | 2025-06-06 07:26 | XMS_ITS | Encounter Summary ---
Author Organization Formerly [facility] Address [address] [place] [address] Care Team Providers Care Fullerette Name Role Phone Lara Cabezas MD Primary Care Provider [phone] Oral Weathers MD Unavailable [phone] Encounter Details Date Type Department Care Team (Late st Contact Info) Description 04/13/2023 Scanned Document [facility] [address] [phone] Pulmonary, Scan Social History Tobacco Use Types [...] Description 08/01/2025 4:00 PM EST Office Visit [facility] [place] [address] [place] [phone] Letty Tanner, PA-C [address] [place] [address] documented as of this encounter Visit Diagnoses Not on filedocumented in this encounter Care Teams Fullerette Relationship Specialty Start Date End Date Lara Cabezas MD [address] [facility] [address] [place] [address] PCP - General Internal Medicine 08/20/22 Oral Weathers MD [address] [place] [address] Primary Straight Cutter Cardiovascular Disease 08/27/22 documented as of this encounter
--- OUTSIDE RECORDS SUMMARY | 2025-06-06 07:26 | XMS_ITS ---
Author Name [facility] Organization Unknown History of Medication Use Medication Directions Dispensed Refills Start Date End Date Stat us Sodium Sulfate-Mag Sulfate-KCl (SUTAB) 5830-765-089 MG Tab Take as directed for Colonoscopy/GI Procedure. See administration instructions. 08/07/2024 active tretinoin (RETIN-A) 0.025 % cream APPLY PEA SIZE AMOUNT TO FACE NIGHTLY 02/02/2024 active estradiol 0.0375 mg/24 hr weekly transdermal patch APPLY 1 PATCH TRANSDERMALLY TWICE A WEEK 01/11/2024 4 completed progesterone (PROMETRIUM) 100 MG capsule Take 1 tablet by mouth daily. 01/11/2024 active escitalopram (LEXAPRO) 10 MG tablet 07/06/2023 active albuterol (PROVENTIL HFA; VENTOLIN HFA) 108 (90 Base) MCG/ACT inhaler INHALE 2 PUFFS EVERY 4 HOURS BY INHALATION ROUTE. 11/16/2022 4 aborted amLODIPine (NORVASC) 5 MG tablet Take 1 tablet (5 mg total) by mouth daily. 08/31/2022 5 active lisinopril (PRINIVIL,ZeSTRIL) 5 MG tablet Take 1 tablet (5 mg total) by mouth daily. 08/28/2022 4 aborted Blood Pressure Kit Please check your BP twice daily. Please chart these numbers. Lifelong use. Associated dg. Essential HTN. 08/20/2022 active metFORMIN (GLUCOPHAGE) 500 MG tablet 07/31/2022 4 active Ozempic, 2 MG/DOSE, 8 MG/3ML prefilled pen injection INJECT 2MG SUBCUTANEOUSLY WEEKLY 06/18/2022 4 active naltrexone-bupropi on ER (CONTRAVE) 8-90 MG per tablet Take 2 tablets by mouth 2 (two) times a day. 09/21/2016 3 active PREVIDENT 5000 SENSITIVE 1.1-5 % Paste 06/07/2015 active topiramate 25 mg tablet TAKE 1 TABLET BY MOUTH EVERY DAY 5 completed azithromycin 250 mg tablet TAKE 2 TABLET ON YOUR FIRST DAY AND THEN TAKE 1 TABLET EACH DAY FOR 4 DAYS 4 completed escitalopram 10 mg tablet TAKE 1 TABLET BY MOUTH EVERY DAY FOR 30 DAYS 4 completed Mounjaro 2.5 mg/0.5 mL subcutaneous pen injector INJECT 2.5 MG SUBCUTANEOUSLY WEEKLY 4 completed Ozempic 2 mg/dose (8 mg/3 mL) subcutaneous pen injector Inject by subcutaneous route for 28 days. 4 completed predniSONE (DELTASONE) 10 MG tablet prednisone 10 mg tablet 4 tablets once a day x 3 days, then 3 tablets once a day x 3 days, then 2 tablets once a days x 3 days, one tablet once a day x 3 days 4 active albuterol sulfate HFA 90 mcg/actuation aerosol inhaler INHALE 2 PUFFS EVERY 4 HOURS BY INHALATION ROUTE NEEDED 3 completed clindamycin HCl 300 mg capsule TAKE 1 CAPSULE BY MOUTH 3 TIMES A DAY 3 completed codeine 10 mg-guaifenesin 100 mg/5 mL oral liquid TAKE 10 ML BY MOUTH EVERY 4 HOURS 3 completed lisinopril 5 mg tablet TAKE 1 TABLET (5 MG TOTAL) BY MOUTH DAILY. 3 completed prednisone 10 mg tablet PLEASE SEE ATTACHED FOR DETAILED DIRECTIONS 3 completed diazepam 2 mg tablet TAKE 1 TABLET BY MOUTH TONIGHT THEN 1 TABLET 1 HOUR PRIOR TO DENTAL PROCEDURE 3 completed amlodipine 5 mg tablet TAKE 1 TABLET (5 MG TOTAL) BY MOUTH DAILY. active desonide 0.05 % topical cream APPLY TO AFFECTED AREA ON SIDE OF LIP TWICE DAILY (MIX WITH KETOCONAZOLE CREAM). active estradiol 0.0375 mg/24 hr semiweekly transdermal patch APPLY 1 PATCH TRANSDERMALLLY TWICE A WEEK active ketoconazole 2 % topical cream USE ON THE AFFECTED AREAS ON SIDE OF LIPS TWICE DAILY (MIX WITH DESONIDE CREAM). active metformin 500 mg tablet TAKE 1 TABLET BY MOUTH EVERY DAY active minoxidil 2.5 mg tablet TAKE 1/2 TABLET BY MOUTH EVERY DAY active Opzelura 1.5 % topical cream Apply to the affected area as needed active Ozempic 0.25 mg or 0.5 mg (2 mg/3 mL) subcutaneous pen injector active progesterone micronized 100 mg capsule TAKE 1 CAPSULE BY MOUTH EVERY DAY active tretinoin 0.025 % topical cream APPLY PEA SIZE AMOUNT TO FACE NIGHTLY active estradiol (VIVELLE-DOT) 0.0375 MG/24HR external patch APPLY 1 PATCH TRANSDERMALLLY TWICE A WEEK active metFORMIN (GLUCOPHAGE) 500 MG tablet Take 1 tablet (500 mg total) by mouth daily. active minoxidil (LONITEN) 2.5 MG tablet Take 0.5 tablets (1.25 mg total) by mouth daily. active semaglutide (OZEMPIC) (0.25 or 0.5 mg/dose pen) prefilled pen injection Inject under the skin once a week. active Allergies Allergen Reaction Severity Comment Documented Date Source Statu s PENICILLINS ANAPHYLAXIS 08/28/2022 [facility] activ e OTHER OTHER (SEE COMMENTS) SEASONAL ALLERGIES REACTION IS POST NASAL DRIP 09/11/2015 CCT active AMOXICILLIN [facility] LISINOPRIL RASH [facility] Problems Problem Status Onset Date Problem Type Date of Resolution Source Left knee pain, unspecified chronicity active [facility] Obesity active 2005-11-03 ProblemAct [facility] Allergic rhinitis active 2005-10-05 ProblemAct [facility] Migraine active 2005-10-05 ProblemAct [facility] Elevated C-reactive protein active 2005-11-03 ProblemAct [facility] Hyperlipidemia active 2005-10-05 ProblemAct [facility] Acne vulgaris active 2015-10-24 ProblemAct [facility] Primary osteoarthritis of left knee active [facility]Diagnosis[facility] Morbid obesity active 2023-07-04 [address] [facility] Obesity active 2023-04-16 Problem[address] [facility] A Mood disorder active 2024-07-26 ProblemAct [facility] Edema of lower extremity active 2024-01-24 ProblemAct [facility] Menopausal symptom active 2023-07-06 ProblemAct [facility] Asthmatic bronchitis active 2022-11-16 ProblemAct [facility] Immunizations Vaccine Date Source Lot Number Status influenza virus vaccine, uns pecified formulation 04/12/2024 [facility] completed SARS-COV-2 (COVID-19) vaccine, UNSPECIFIED 04/12/2024 CTLaina ROBERTSON completed Pneumococcal conjugate vacci ne 20-valent (PCV20), polysaccharide [id number] conjugate, adjuvant, preservative free 08/23/2023 [facility] [id number] comp leted zoster vaccine subunit 08/23/2023 [facility] [id number] co mpleted influenza virus vaccine, uns pecified formulation 04/16/2023 [facility] completed tetanus toxoid, reduced diph theria toxoid, and acellular pertussis vaccine, adsorbed 01/03/2020 [facility] completed Tdap 10/30/2010 [facility] [id number] completed Influenza Inactivated/Split Preservative Free IM 03/26/2009 [facility] [id number] completed Encounters Encounter Type Encounter Reason Primary Diagnosis Location Date Ambulatory [facility] 05/19/2025 Ambulatory Pain in left knee Pain in left knee [facility] 05/19/2025 Ambulatory Encounter for screening for malignant neoplasm of colon Encounter for screening for malignant neoplasm of colon [facility] 09/21[facility]2024 [facility] 08/27/2024 [facility] 07/26/2024 Ambulatory Hyperlipidemia, unspecified Hyperlipidemia, unspecified [facility] 07/19/2024 Ambulatory Body mass index (BMI) 40.0-44.9, adult Body mass index (BMI) 40.0-44.9, adult [facility] 04/10/2024 Ambulatory Nutrition Counseling [facility] 04/06/2024 Ambulatory Nutrition Counseling [facility] 02/25/2024 Ambulatory Vitamin D deficiency, unspecified Vitamin D deficiency, unspecified [place] [facility] 02/07/2024 Ambulatory [facility] 11/01/2023 Ambulatory Hyperlipidemia, unspecified Hyperlipidemia, unspecified [facility] 09/27/2023 Ambulatory Hyperlipidemia, unspecified Hyperlipidemia, unspecified [facility] 08/09/2023 Ambulatory Chest pain, unspecified Chest pain, unspecified [facility] 07/07/2023 Ambulatory Obstructive sleep apnea (adult) (pediatric) Obstructive sleep apnea (adult) (pediatric) [facility] 04/13/2023 Ambulatory Essential (prima ry) hypertension [email or web address] 11/26/2022 Ambulatory Obstructive slee p apnea (adult) (pediatric) [email or web address] 11/19/2022 Ambulatory Chest pain, unspecified [email or web address] 10/14/2022 Ambulatory Chest pain, unspecified [email or web address] 10/07/2022 Ambulatory Chest pain, unspecified [email or web address] 10/07/2022 Ambulatory Essential (prima ry) hypertension [email or web address] 09/15/2022 Ambulatory Chest pain, unspecified [email or web address] 08/28/2022 Emergency Chest pain, unspecified [email or web address] 08/20/2022 Care Team Organization Name Specialty Phone Email Start Date End Da te [email or web address] 05/19/2025 [email or web address] 05/19/2025 [email or web address] Justin [facility] 05/19/2025 [facility] 11/08/2024 025 [email or web address] JUSTIN EILEEN [facility] 09/26/2024 [facility] JUSTIN [facility] Primary Care 08/03/2024 [facility] 01/06/2024 [facility] 11/29/2023 [facility] 03/30/2023 [facility] 11/24/2022 024 [email or web address] EILEEN,JUSTIN Primary Care 08/28/2022 [email or web address] JUSTIN ARELLANO Primary Care 08/20/2022 08/20/2022 [email or web address] PCP,No Primary Care 08/20/2022 [facility] JUSTIN MARCUSI Primary Care 05/05/2022 02/14/2024 [email or web address] NO PCP Primary Care
--- OUTSIDE RECORDS SUMMARY | 2025-06-06 07:27 | XMS_ITS | Clinical Summary ---
Author Organization [facility] Address [address] [place] [address] Care Team Providers Care Machine Precision Etcher Name Role Phone Unavailable Primary Care Provider Unavailabl e Social History Tobacco Use Types Packs/Day Years Used Date Smoking Tobacco: Never Assessed Comments Unknown Sex and Gender Information Value Date Recorded Sex Assigned at Not on file Legal Sex Female 11:49 PM EDT Gender Identity Not on file Sexual Orientation Not on file Plan of Treatment Health Maintenance Due Date Last Done Comments Hepatitis C Screening 1967 Pap Smear 1983 DTaP/Tdap/Td (1 - Tdap) 10/08/1985 Hep B (1 of 3 - 19+ 3-dose series) 10/08/1986 Mammogram/Breast Imaging 2007 Pneumococcal 50+ years (1 of 1 - PCV) 10/08/2017 Zoster (Shingrix) (1 of 2) 10/08/2017 COVID-19 Vaccine (2024-2 6 season) 2025 Influenza (#1) 2025 RSV (1 - 1-dose 75+ series) 10/08/2042 HPV Vaccine (No Doses Required) Completed Hep A Aged Out No longer eligi ble based on patient's age to complete this topic Hib Aged Out No longer eligi ble based on patient's age to complete this topic Meningococcal ACWY Aged Out No longer eligible based on patient's age to complete this topic
--- OUTSIDE RECORDS SUMMARY | 2025-06-06 07:27 | XMS_ITS | Clinical Summary ---
Author Organization [facility] Address [address] [place] [address] Care Team Providers Care Fishing Manager Name Role Phone Lara Cabezas MD Primary Care Provider [phone] Social History Tobacco Use Types Packs/Day Years Used Date Smoking Tobacco: Never Assessed Comments Unknown Sex and Gender Information Value Date Recorded Sex Assigned at Not on file Legal Sex Female 4:11 AM EST Gender Identity Not on file Sexual Orientation Not on file Plan of Treatment Health Maintenance Due Date Last Done Comments Colorectal Cancer Screening: Colonoscopy 1967 DTaP,Tdap,and Td Vaccines (1 - Tdap) 10/08/1986 Hepatitis B Vaccines (1 of 3 - 19+ 3-dose series) 10/08/1986 Pneumococcal Vaccine: 50+ Years (1 of 1 - PCV) 10/08/2017 Zoster Vaccines (1 of 2) 10/08/2017 HIV Screening 05/31/2022 Hepatitis C Screening 05/31/2022 Social Influencers of Health Screening 05/31/2022 Depression Screening 06/28/2024 COVID-19 Vaccine (1 - 2024-2 6 season) 2025 Influenza Vaccine (#1) 2025 Cervical Cancer Screening: P ap Smear 07/01/2025 07/01/2022, 01/03/2020 Breast Cancer Screening 07/22/2025 07/22/19 24, 01/18/2020 RSV Immunization Adult Patients (1 - 1-dose 75+ series) 10/08/2042 HIB Vaccines Aged Out No longer eligi ble based on patient's age to complete this topic HPV Vaccines Aged Out No longer eligi ble based on patient's age to complete this topic Hepatitis A Vaccines Aged Out No long er eligible based on patient's age to complete this topic IPV Vaccines Aged Out No longer eligi ble based on patient's age to complete this topic MMR Vaccines Aged Out No longer eligi ble based on patient's age to complete this topic Meningococcal ACWY Vaccine Aged Out N o longer eligible based on patient's age to complete this topic Meningococcal B Vaccine Aged Out No l onger eligible based on patient's age to complete this topic RSV Immunization Patients Under 20 months Aged Out No longer eligible b ased on patient's age to complete this topic Varicella Vaccines Aged Out No longer eligible based on patient's age to complete this topic Procedures Procedure Name Priority Date/Time Associated Diagnosis Comments MAMMOGRAM SCREENING BILATERAL 3D DEWEY WITH CAD Routine 07/22/2023 10:05 AM EST Encounter for screening mammogram for malignant neoplasm of breast PAP SMEAR Routine 07/01/2022 10:37 AM EST from Last 3 Months or Most Recently Relevant to Health Maintenance Results * MAMMOGRAM SCREENING BILATERAL 3D DEWEY WITH CAD (07/22/2023 10:05 AM EST) Anatomical Region Laterality Modality Mammography 07/07/2023 9:13 AM EST Narrative 07/22/2023 1:57 PM EST This is a summary report. The complete report is available in the patient's medical record. If you cannot access the medical record, please contact the sending organization for a detailed fax or copy. MAMMOGRAM SCREENING BILATERAL 3D DEWEY WITH CAD [...] plain language report , as required by [facility] bill [id number]. Session: Separate Report reviewed and signed by : Dr. Ar Hanley MD on 07/22/2023 1:57 PM. Workstation Name - [id number] Procedure Note Ar Hanley MD - 02/14/2024 This is a summary report. The complete report is available in thepatient's medical record. If you cannot access the medical record, pleasecontact the sending organization for a detailed fax or copy. MAMMOGRAM SCREENING BILATERAL 3D DEWEY WITH CAD TECHNIQUE: Full field digital mammography synthesized (2-D) andTomosynthesis (3- D) was performed. COMPARISON: 2019 HISTORY: Screening FINDINGS: CC and MLO views of bilateral breasts performed. BREAST DENSITY: Scattered fibroglandular densities within the breastparenchyma (25-50% fibroglandular tissue; Category B). No dominant masses, lesions, areas of architectural distortion orsuspicious calcifications were identified. There are no secondary signsfor malignancy. CAD was utilized. IMPRESSION: 1. No mammographic evidence of malignancy. 2. Recommend routine mammographic screening in one year. BIRADS 2: Benign findings 3342 F The patient has been informed about her/his breast density by a lettercontaining a plain language report , as required by [place] [id number]. Session: Separate Report reviewed and signed by : Dr. Ar Hanley MD on 07/22/2023 1:57 PM.Workstation Name - [id number] Lara Cabezas MD IMG BI PROCEDURES Final Result * Pap smear (07/01/2022 10:37 AM EST) Case Results Patient Name: JESSICA JACK MR#: [id number] Collected Date: 07/01/2022 Reported Date: 07/27/2022 Specimen #[id number] Final Diagnosis Satisfactory for evaluation. Endocervical transformation zone component present. Negative for Intraepithelial Lesion or Malignancy. Atrophic changes. Partially obscuring inflammation noted. Clinical Diagnosis Z01.419 Note: This case was reviewed at [facility] at [address] [place] [id number] (CLIA# [id number]/ Richard Sheikh MD, Electronics Maintenance Technician) Source: A: ThinPrep Imaged Pap Cervical-SC B: HPV Mandatory Electronically Signed Out By JANAE CHATTERJEE (ASCP) Addenda/Procedures HPV DNA PROBE, MANDATORY Ordered: 07/03/2022 Reported: 07/03/2022 HPV HIGH RISK: NEGATIVE None of the following High Risk human papillomavirus (HPV) types has been detected: 16,18,31,33,35,39, 45,51,52,56,58,59, 66,and 68. The Aptima HPV nucleic acid amplification assay manufactured by [employer] and performed on the [employer] System was used for the qualitative detection of E6/E7 viral messenger RNA (mRNA) from 14 high-risk types of (HPV) in cervical specimens. <<NOTE>> Clinical guidelines for follow up of patients screened with HPV testing can be found in the following reference: Ashleigh WK , et al. Use of primary high risk human papillomavirus testing for cervical cancer screening: Interim clinical guidance, Gynecol Oncol. 2015 Jul, 136(2):178-82. Procedure/Addend um Electronically Signed Out By System Interface Note: The Pap test is a screening test with an inherent false negative rate. Automated prescreening of all liquid based specimens is performed by the [employer] System unless otherwise stated. Test Performed by: [address] [address] Meredith Corrales M.D., Director HISTORICAL TESTING LAB RESULTING AGENCY 07/01/2022 10:3 7 AM EST us Lara Cabezas MD LAB CYTOLOGY ORDERABLES Final Re sult HISTORICAL TESTING LAB RESULTING AGENCY from Last 3 Months or Most Recently Relevant to Health Maintenance Care Teams Fishing Manager Relationship Specialty Start Date End Date Lara Cabezas MD PCP - General Internal Medicine 12/20/19
--- OUTSIDE RECORDS SUMMARY | 2025-06-06 07:27 | XMS_ITS | Encounter Summary ---
Author Organization [facility] Address [address] [place] [address] Care Team Providers Care Entry Table Operator Name Role Phone Pcp, No Primary Care Provider UnavailRenetta Li MD Primary Care Provider [phone] Pcp, No Primary Care Provider UnavailLara Castro MD Primary Care Provider [phone] Oral Weathers MD Unavailable [phone] Encounter Details Date Type Department Care Team (Late st Contact Info) Description 08/15/2015 Scanned Document [address] [id number] Provider, Generic Social History Tobacco Use Types Packs/Day Years Used Date Smoking Tobacco: Never Alcohol Use Standard Drinks/Week Comments No 0 (1 standard drink = 0.6 oz pur e alcohol) Comments Unknown Sex and Gender Information Value Date Recorded Sex Assigned at Female 08/20/2022 12:22 PM EST Legal Sex Female 5:14 PM EDT Gender Identity Female 08/20/2022 12:22 PM EST Sexual Orientation Heterosexual (straight) 08/20 12:22 PM EST documented as of this encounter Plan of Treatment Upcoming Encounters Date Type Department Care Team (Late st Contact Info) Description 08/01/2025 4:00 PM EST Office Visit [facility] [place] [address] [address] Letty Tanner PA-C [address] [place] [address] documented as of this encounter Procedures Procedure Name Priority Date/Time Associated Diagnosis Comments XRAY EXTERNAL RESULT 08/15/2015 documented in this encounter Results * XRAY EXTERNAL RESULT (08/15/2015) Anatomical Region Laterality Modality Computed Radiogr aphy Narrative 08/16/2015 10:30 PM EST Ordered by an unspecified provider. us Generic Provider IMG DIAGNOSTIC IMAGING ORDERABL ES Edited Result - Final documented in this encounter Visit Diagnoses Not on filedocumented in this encounter Care Teams Entry Table Operator Relationship Specialty Start Date End Date Pcp, No PCP - General General Medicine 08/15/15 10/23/15 Renetta Whitlock MD [address] [facility] [address] [place] [address] PCP - General Family Medicine 10/24/15 11/04/16 Pcp, No PCP - General General Medicine 11/05/16 08/19/22 Lara Cabezas MD [address] [facility] [address] [place] [address] PCP - General Internal Medicine 08/20/22 Oral Weathers MD [address] [place] [address] Primary Foam Molder Cardiovascular Disease 08/27/22 documented as of this encounter
--- OUTSIDE RECORDS SUMMARY | 2025-06-06 07:27 | XMS_ITS | Encounter Summary ---
Author Organization [facility] Address [address] [place] [address] Care Team Providers Care Self Rising Flour Mixer Name Role Phone Lara Cabezas MD Primary Care Provider Oral Weathers MD Unavailable [phone] Encounter Details Date Type Department Care Team (Late st Contact Info) Description 08/31/2022 Scanned Document [facility] Pulmonary [address] [place] [phone] Pulmonary, Scan Social History Tobacco Use [...] suspected to have Coronavirus/COVID-19? No / Unsure 08/28/2022 2:58 PM EST documented as of this encounter Plan of Treatment Upcoming Encounters Date Type Department Care Team (Late st Contact Info) Description 08/01/2025 4:00 PM EST Office Visit [facility] [place] [address] [place] [phone] Letty Tanner PASimoneC [address] [place] [address] documented as of this encounter Visit Diagnoses Not on filedocumented in this encounter Care Teams Self Rising Flour Mixer Relationship Specialty Start Date End Date Lara Cabezas MD [address] [facility] - [address] [place] [address] PCP - General Internal Medicine 08/20/22 Oral Weathers MD [address] [place] [address] Primary Manager Of Employee Relations Cardiovascular Disease 08/27/22 documented as of this encounter
--- OUTSIDE RECORDS SUMMARY | 2025-06-06 07:27 | XMS_ITS | Encounter Summary ---
Author Organization [facility] Address [address] [place] [address] Care Team Providers Care Patrol Judge Name Role Phone Pcp, No Primary Care Provider UnavailLara Castro MD Primary Care Provider Oral Weathers MD Unavailable [phone] Encounter Details Date Type Department Care Team (Late st Contact Info) Description 07/07/2017 Scanned Document [facility] [address] [address] Pcp, No Social History Tobacco Use Types Packs/Day Years [...] 4:00 PM EST Office Visit [facility] [place] [address] [phone] Letty Tanner, PASimoneC [address] [place] [address] documented as of this encounter Visit Diagnoses Not on filedocumented in this encounter Care Teams Patrol Judge Relationship Specialty Start Date End Date Pcp, No PCP - General General Medicine 11/05/16 08/19/22 Lara Cabezas MD [address] [facility] [address] [place] [address] PCP - General Internal Medicine 08/20/22 Oral Weathers MD [address] [place] [address] Primary Barbering Teacher Cardiovascular Disease 08/27/22 documented as of this encounter
--- OUTSIDE RECORDS SUMMARY | 2025-06-06 07:27 | XMS_ITS | Encounter Summary ---
Author Organization [facility] Address [address] [place] [address] Care Team Providers Care Recruiter Specialist Name Role Phone Lara Cabezas MD Primary Care Provider [phone] Oral Weathers MD Unavailable [phone] Encounter Details Date Type Department Care Team (Late st Contact Info) Description 09/21/[address] [facility] Pulmonary [address] [place] [phone] Pulmonary, Scan Social History Tobacco Use [...] suspected to have Coronavirus/COVID-19? No / Unsure 09/15/2022 2:53 PM EDT documented as of this encounter Plan of Treatment Upcoming Encounters Date Type Department Care Team (Late st Contact Info) Description 08/01/2025 4:00 PM EST Office Visit [facility] [place] [address] [place] [phone] Letty Tanner PASimoneC [address] [place] [address] documented as of this encounter Visit Diagnoses Not on filedocumented in this encounter Care Teams Recruiter Specialist Relationship Specialty Start Date End Date Lara Cabezas MD [address] [facility] [address] [place] [phone] PCP - General Internal Medicine 08/20/22 Oral Weathers MD [address] [place] [address] Primary Potato Chip Packaging Machine Operator Cardiovascular Disease 08/27/22 documented as of this encounter
--- OUTSIDE RECORDS SUMMARY | 2025-06-06 07:27 | XMS_ITS | Encounter Summary ---
Author Organization [facility] Address [address] [place] [address] Care Team Providers Care Locomotive Supervisor Name Role Phone Pcp, No Primary Care Provider UnavailLara Castro MD Primary Care Provider [phone] Oral Weathers MD Unavailable [phone] Encounter Details Date Type Department Care Team (Late st Contact Info) Description 07/07/2017 Scanned Document [facility] [address] [address] Pcp, No Social History Tobacco [...] Description 08/01/2025 4:00 PM EST Office Visit [facility] [place] [address] [phone] Letty Tanner, PASimoneC [address] [place] [address] documented as of this encounter Visit Diagnoses Not on filedocumented in this encounter Care Teams Locomotive Supervisor Relationship Specialty Start Date End Date Pcp, No PCP - General General Medicine 11/05/16 08/19/22 Lara Cabezas MD [address] [facility] [address] [place] [address] PCP - General Internal Medicine 08/20/22 Oral Weathers MD [address] [place] [address] Primary Hat And Cap Drying Room Attendant Cardiovascular Disease 08/27/22 documented as of this encounter
--- OUTSIDE RECORDS SUMMARY | 2025-06-06 07:27 | XMS_ITS | Clinical Summary ---
Author Organization [facility] Prior to 11/25/[address] [place] [address] Care Team Providers Care In Home Sales Representative Name Role Phone Lara Cabezas MD Primary Care Provider [phone] Social History Tobacco Use Types Packs/Day Years Used Date Smoking Tobacco: Never Assessed Sex and Gender Information Value Date Recorded Sex Assigned at Not on file Gender Identity Not on file Sexual Orientation Not on file Job Start Date Occupation Industry Not on file Not on file Not on file Plan of Treatment Health Maintenance Due Date Last Done Comments Hepatitis B Vaccines (1 of 3 - 3-dose series) 1967 Hepatitis C Screening 1967 COVID-19 Vaccine (#1) 04/09/1968 Depression Screening 1979 Preventative Health Evaluation 10/08/1985 Colon Cancer Screening (Colonoscopy) 10/08/2012 Shingrix-Zoster Vaccine (1 o f 2) 10/08/2017 DTap / Tdap / Td (2 - Td or Tdap) 10/30/2020 10/30/2010 Influenza Vaccine (#1) 2025 03/26/2009 Cervical Cancer Screening (Pap Smear) 07/01/2025 07/01/2022, 01/03/2020 Breast Cancer Screening (Mammogram) 07/22/2025 07/22/2023, 01/18/2020 Pneumococcal Vaccine Aged Out No long er eligible based on patient's age to complete this topic RSV Ped < 20 months Aged Out No longe r eligible based on patient's age to complete this topic Care Teams In Home Sales Representative Relationship Specialty Start Date End Date Lara Cabezas MD PCP - General Internal Medicine 12/20/19
--- OUTSIDE RECORDS SUMMARY | 2025-06-06 07:28 | XMS_ITS | Encounter Summary ---
Author Organization [facility] Address [address] [place], [place] [address] Care Team Providers Care Optical Effects Layout Person Name Role Phone Lara Cabezas MD Primary Care Provider [phone] Reny Morales ENTRY EXAMINER Unavailable [phone] Encounter Details Date Type Department Care Team (Latest Contact Info) Description 02/07/2024 Scanned Document [facility] [address] [place], [place] [address] Reny Morales APRN [address] [facility] C [place] [address] 02/07/24 [facility] Patient Agreement Social History Tobacco Use Types Packs/Day Years [...] on filedocumented in this encounter Care Teams Optical Effects Layout Person Relationship Specialty Start Date End Date Lara Cabezas MD [address] [place] [phone] PCP - General Internal Medicine 02/07/24 Reny Morales APRN [address] [facility] [place] [address] Nurse Practitioner General Surgery 02/07/24 documented as of this encounter
--- OUTSIDE RECORDS SUMMARY | 2025-06-06 07:28 | XMS_ITS | Encounter Summary ---
Author Organization [facility] Address [address] [place], [place] [address] Care Team Providers Care Marketing Production Coordinator Name Role Phone Lara Cabezas MD Primary Care Provider [phone] Reny Morales TRACK EQUIPMENT OPERATOR Unavailable [phone] Encounter Details Date Type Department Care Team (Latest Contact Info) Description 02/07/2024 Scanned Document [facility] [address] [place], [place] [address] Reny Morales APRN [facility] [place] [address] 02/07/24 [facility] Questionnaire Social History Tobacco Use Types Packs/Day Years [...] on filedocumented in this encounter Care Teams Marketing Production Coordinator Relationship Specialty Start Date End Date Lara Cabezas MD [address] [place] [phone] PCP - General Internal Medicine 02/07/24 Reny Morales APRN [facility] [place] [address] Nurse Practitioner General Surgery 02/07/24 documented as of this encounter
== END 2025-06-06 07:52 | disposition home or self-care (01) ==
LOC: HO.HPHYS 07:23
PROVIDERS: Visit Provider Physical Medicine & Rehabilitation
DX: M25.552 Pain in left hip (principal); S76.112A Strain of left quadriceps muscle, fascia and tendon, initial encounter
CPT/HCPCS: 99204